=== PATIENT | male | born 1945 | race Caucasian/White ===

== ENCOUNTER 2018-12-24 11:41 | Inpatient (IN) | payer MEDICARE, OTHER ==
[2018-12-23 11:55] LABS: BASOPHILS # (AUTO) 0.1 X10'3 (0-0.2); BASOPHILS % (AUTO) 0.7 % (0-1); EOSINOPHILS # (AUTO) 0.3 X10'3 (0-0.9); EOSINOPHILS % (AUTO) 2.8 % (0-6); HEMATOCRIT 49.2 % (42.0-52.0); LYMPHOCYTES # (AUTO) 2.1 X10'3 (1.1-4.8); LYMPHOCYTES % (AUTO) 22.9 % (21-51); MEAN CORPUSCULAR HGB CONC 32.6 g/dL (33.0-36.5); MEAN CORPUSCULAR VOLUME 89.1 FL (78-98); MONOCYTES # (AUTO) 0.6 X10'3 (0-0.9); MONOCYTES % (AUTO) 6.6 % (2-12); NEUTROPHILS # (AUTO) 6.2 X10'3 (1.8-7.7); PLATELET COUNT 170 X10'3 (140-440); RED BLOOD COUNT 5.52 X10'6 (4.70-6.10); RED CELL DISTRIBUTION WIDTH 15.9 % (11.5-14.5); WHITE BLOOD COUNT 9.2 X10'3 (4.5-11.0)
[2018-12-23 12:14] LABS: ALANINE AMINOTRANSFERASE 21 U/L (12-78); ALBUMIN 3.3 G/DL (3.4-5.0); ALBUMIN/GLOBULIN RATIO 0.8 (1.1-1.5); ALKALINE PHOSPHATASE 84 IU/L (46-116); ANION GAP 7 (8-16); ASPARTATE AMINO TRANSFERASE 21 U/L (10-37); BILIRUBIN,TOTAL 0.8 MG/DL (0.1-1.0); BLOOD UREA NITROGEN 8 MG/DL (7-18); BUN/CREATININE RATIO 7.9 (5.4-32.0); CALCIUM 8.7 MG/DL (8.5-10.1); CHLORIDE 105 MMOL/L (99-107); CREATININE 1.01 MG/DL (0.60-1.10); GLUCOSE 83 MG/DL (70-104); POTASSIUM 3.8 MMOL/L (3.5-5.1); SODIUM 139 MMOL/L (135-145); TOTAL CARBON DIOXIDE 26.6 MMOL/L (24-32); TOTAL PROTEIN 7.2 G/DL (6.4-8.2); eGFR 72 ML/MIN
[2018-12-23 12:17] LABS: INR 1.1 INR; PARTIAL THROMBOPLASTIN TIME 29 SECONDS (22-32); PROTHROMBIN TIME 10.7 SECONDS (9.0-12.0)
[~2018-12-24] VITALS: Ht 172.7 cm; Wt 82.4 kg
[2018-12-24] VITALS (19 sets, daily range): BP systolic 145–183; BP diastolic 56–101
[2018-12-24] MEDS ORDERED: normal saline 1000ml 1,000 ML IV SCH (12:00)
[2018-12-24] MEDS ORDERED: nitroGLYCERIN 0.4mg SUBLingual tab SL PRN ×2 (12:05→18:00)
[2018-12-24] MEDS ORDERED: diphenhydrAMINE 25mg capsule PO ONE (12:05)
[2018-12-24] MEDS ORDERED: LORazepam 0.5 MG tablet PO ONE (12:05)
[2018-12-24] MEDS ORDERED: ASPI-1264 PO (12:39)
[2018-12-24] MEDS ORDERED: TEST200V10 IM (12:39)
[2018-12-24] MEDS ORDERED: ATOR80TA PO (12:39)
[2018-12-24] MEDS ORDERED: LEVO112T5 PO (12:39)
[2018-12-24] MEDS ORDERED: papaverine 30 mg/ml 2ml inj. ONE (13:00)
[2018-12-24] MEDS ORDERED: potassium Cl 2 mEq/ml inj IV ONE (13:00)
[2018-12-24] MEDS ORDERED: phenylephrine 10mg/ml inj. ONE (13:00)
[2018-12-24] MEDS ORDERED: albumin (human) 25% 100 ML IV solution IV ONE (13:00)
[2018-12-24] MEDS ORDERED: MAGNESIUM SULFATE 4 MEQ/ML (5gm/10ml) injection ONE (13:00)
[2018-12-24] MEDS ORDERED: LIDOcaine 2% (20 mg/ml) 5ml cardiac syringe ONE (13:00)
[2018-12-24] MEDS ORDERED: heparin 10,000 units/1 ML INJ ONE (13:00)
[2018-12-24] MEDS ORDERED: sodium bicarbonate (8.4%) inj. 1 MEQ/ML ML ONE (13:00)
[2018-12-24] MEDS ORDERED: aminocaproic acid 250 MG/1 ML inj. ONE (13:00)
[2018-12-24] MEDS ORDERED: calcium chloride 100 MG/1 ML inj IV ONE (13:00)
[2018-12-24] MEDS ORDERED: methylPREDNISolone sod. succ. 500mg inj ONE (13:00)
[2018-12-24] MEDS ORDERED: heparin 1,000 units/ml 10ml inj ONE (13:00)
[2018-12-24] MEDS ORDERED: LIDOcaine 1% (10mg/ml)w/preservative injection 20ml MDV ONE (13:08)
[2018-12-24] MEDS ORDERED: fentaNYL/PF 50MCG/1 ML 2ML syringe ONE (13:08)
[2018-12-24] MEDS ORDERED: midazolam 2 mg/2 ml injection ONE (13:08)
[2018-12-24] MEDS ORDERED: heparin 1,000 UNITS/NS 500ml 500 ML ONE ×2 (13:08)
[2018-12-24] MEDS ORDERED: iohexol 350MG/ML 100ml bottle IV ONE (13:09)
[2018-12-24] MEDS ORDERED: iohexol 350 MG/ML 50ML vial IV ONE (13:09)
[2018-12-24] MEDS ORDERED: insulin regular, human 100 UNIT in normal saline 100ml IV soln 100 ML IV SCH ×2 (15:27)
[2018-12-24] MEDS ORDERED: cefazolin/dext.iso 2gm/50ml 50 ML IV ONE (15:30)
[2018-12-24] MEDS ORDERED: vancomycin/NS 1 GM ADD-VANTAGE 250 ML IV ONE (15:30)
[2018-12-24] MEDS ORDERED: gabapentin 400mg capsule PO ONE (15:30)
[2018-12-24] MEDS ORDERED: insulin glargine (Lantus) pen - multi-dose SQ PRN (15:30)
[2018-12-24] MEDS ORDERED: MESSAGE TO NURSING PO ONE ×4 (15:30)
[2018-12-24] MEDS ORDERED: dextrose 50%-water 50ml dispensing syringe IV PRN (15:30)
[2018-12-24] MEDS ORDERED: NUT.TX.IMPAIRED DIGEST FXN (Ensure Clear) 237 ML PO ONE (15:30)
[2018-12-24] MEDS ORDERED: proCHLORperazine 10 MG/2 ml inj IV PRN (18:00)
[2018-12-24] MEDS ORDERED: ondansetron/PF 4mg/2ml inj IV PRN (18:00)
[2018-12-24] MEDS ORDERED: OXAZEpam 15mg capsule PO PRN (18:00)
[2018-12-24] MEDS: insulin Lispro (HumaLOG) vial - multi-dose SQ SCH (18:00)
[2018-12-24] MEDS ORDERED: HYDROcodone/acetaminophen 5mg/325mg tablet PO PRN (18:00)
[2018-12-24] MEDS ORDERED: normal saline 1000ml 1,000 ML IV ONE (18:00)
[2018-12-24] MEDS ORDERED: HYDROcodone/acetaminophen 10/325mg tab PO PRN (18:00)
--- NOTE | 2018-12-24 18:10 | NUR ---
Patient in room MED 310. I have received report from Art and had the opportunity to ask questions and assume patient care.
[2018-12-24 19:11] LABS: HEMATOCRIT 45.5 % (42.0-52.0); HEMOGLOBIN 14.5 g/dl (14.0-17.9); MEAN CORPUSCULAR HEMOGLOBIN 28.8 PG (27.0-31.0); MEAN CORPUSCULAR VOLUME 90.1 FL (78-98); MEAN PLATELET VOLUME 9.1 FL (7.4-10.4); PLATELET COUNT 145 X10'3 (140-440); RED BLOOD COUNT 5.05 X10'6 (4.70-6.10); RED CELL DISTRIBUTION WIDTH 15.4 % (11.5-14.5); WHITE BLOOD COUNT 6.7 X10'3 (4.5-11.0)
[2018-12-24 19:21] LABS: INR 1.1 INR; PARTIAL THROMBOPLASTIN TIME 28 SECONDS (22-32)
[2018-12-24 19:26] LABS: ALANINE AMINOTRANSFERASE 23 U/L (12-78); ALBUMIN 2.7 G/DL (3.4-5.0); ALBUMIN/GLOBULIN RATIO 0.8 (1.1-1.5); ALKALINE PHOSPHATASE 76 IU/L (46-116); ANION GAP 3 (8-16); ASPARTATE AMINO TRANSFERASE 19 U/L (10-37); BILIRUBIN,TOTAL 0.5 MG/DL (0.1-1.0); BLOOD UREA NITROGEN 8 MG/DL (7-18); BUN/CREATININE RATIO 8.1 (5.4-32.0); CALCIUM 8.2 MG/DL (8.5-10.1); CHLORIDE 107 MMOL/L (99-107); CREATININE 0.99 MG/DL (0.60-1.10); GLUCOSE 108 MG/DL (70-104); POTASSIUM 3.7 MMOL/L (3.5-5.1); SODIUM 141 MMOL/L (135-145); TOTAL CARBON DIOXIDE 31.3 MMOL/L (24-32); TOTAL PROTEIN 6.1 G/DL (6.4-8.2); eGFR 74 ML/MIN
[2018-12-24 19:32] LABS: HEMOGLOBIN A1C 6.1 % (4.5-6.2)
[2018-12-24] MEDS ORDERED: mupirocin 2% nasal ointment 1gm UD NS SCH (20:00)
[2018-12-24] MEDS: atorvastatin 20mg tablet PO SCH (20:13)
[2018-12-24] MEDS ORDERED: non-formulary drug (Atorvastatin Calcium* (Lipitor*) 1 TABLET) PO SCH (21:00)
[2018-12-24] MEDS ORDERED: amLODIPine 5mg tablet PO ONE (22:25)
[2018-12-25] VITALS (7 sets, daily range): BP systolic 98–150; BP diastolic 36–74
--- NOTE | 2018-12-25 06:10 | NUR ---
Problems reprioritized. Patient report given, questions answered & plan of care reviewed with Tiffany.
[2018-12-25] MEDS: aspirin 325mg tablet PO SCH (08:32)
[2018-12-25] MEDS: levoTHYROXINE 112mcg tablet PO SCH (08:32)
[2018-12-25] MEDS: metoprolol tartrate 12.5mg (1/2 tablet) PO SCH ×2 (08:34→20:09)
[2018-12-25] MEDS: insulin Lispro (HumaLOG) vial - multi-dose SQ SCH ×3 (09:00→13:42)
[2018-12-25] MEDS ORDERED: MESSAGE TO NURSING PO ONE (10:00)
[2018-12-25] MEDS ORDERED: FLO0.4C PO (11:55)
--- NOTE | 2018-12-25 12:31 | NUR ---
RESPIRATORY PAGED FOR PFTs AND ABGs
--- NOTE | 2018-12-25 15:11 | NUR ---
RESPIRATORY RE-PAGED. INFORMED PATIENT IS NOW 1ST CASE CABG TOMORROW NOT 2ND CASE
--- NOTE | 2018-12-25 15:19 | NUR ---
RESPIRATORY CALLED BACK INFORMED RT, MICHELET, WILL DO PRE-OP STUDIES AFTER HIS MEETING. MESSAGED PHARMACY AND INFORMED PATIENT SURGERY TIME CHANGED AND TO MAKE PRE-OP MEDS AVAILABLE/DELIVERED THIS EVENING.
[2018-12-25] MEDS ORDERED: albuterol 2.5 MG/3 ML nebule NEB ONE (16:10)
[2018-12-25 17:11] LABS: ABG BASE EXCESS 1.1 mmol/L (-2.0-3.0); ABG HCO3 24.4 mmol/L (22.0-26.0); ABG OXYGEN SATURATION 95.8 % (95-98); ABG PH (T) 7.461 (7.350-7.450); ABG PO2 (T) 76.6 mmHg (83-108); ALLEN'S TEST Positive; FCOHb 0.7 % (0.5-1.5); FMetHb 0.1 % (0.3-1.12); TOTAL HEMOGLOBIN 16.3 G/dl (14.0-18.0)
--- NOTE | 2018-12-25 18:00 | NUR ---
Patient in room MED 310. I have received report from GINNA Allen and had the opportunity to ask questions and assume patient care.
[2018-12-25] MEDS: atorvastatin 20mg tablet PO SCH (20:10)
--- NOTE | 2018-12-25 23:18 | NUR ---
AT 2304 patient noted to be moving via tele monitoring. While walking to patient room heard patient make loud sound. Entered room at found patient on the floor next to bed close to the door and a used urinal upright on the counter across the room at the sink. Patient stated he "used the urinal and was walking back to bed when he slipped and fell". Assessed patient for injury- small 1.5cm laceration to base of skull noted with little to no bleeding. no changes in vitals or neuro assessment noted. Patient denied pain and changes in vision. Assisted patient to standing and back into bed. Education provided, again, regarding need to call for assistance prior to standing. Tabs alarm placed on patient at this time for patients safety. Call placed to MD Silva- states no further intervention necessary at this time. Call placed to patients Amy Oleary- she states "sometimes he does that. he just doesn't aim and then urinates all over the floor. It drives me crazy". I explained that her did sustain a laceration to the back of head and that we would continue to monitor him for changes in condition and would notify both the MD and her if they arose. Updated patients care plan. Wound pictures taken and placed in chart.
[2018-12-26] VITALS (30 sets, daily range): BP systolic 100–157; BP diastolic 47–70
[2018-12-26] MEDS ORDERED: mupirocin 2% nasal ointment 1gm UD NS SCH ×2 (03:25→08:00)
[2018-12-26 04:26] LABS: BASOPHILS # (AUTO) 0.1 X10'3 (0-0.2); BASOPHILS % (AUTO) 0.6 % (0-1); EOSINOPHILS # (AUTO) 0.2 X10'3 (0-0.9); EOSINOPHILS % (AUTO) 2.7 % (0-6); HEMATOCRIT 50.2 % (42.0-52.0); LYMPHOCYTES # (AUTO) 1.5 X10'3 (1.1-4.8); LYMPHOCYTES % (AUTO) 16.3 % (21-51); MEAN CORPUSCULAR HEMOGLOBIN 28.7 PG (27.0-31.0); MEAN CORPUSCULAR HGB CONC 31.9 g/dL (33.0-36.5); MEAN CORPUSCULAR VOLUME 89.9 FL (78-98); MEAN PLATELET VOLUME 9.6 FL (7.4-10.4); MONOCYTES # (AUTO) 0.5 X10'3 (0-0.9); MONOCYTES % (AUTO) 5.1 % (2-12); NEUTROPHILS # (AUTO) 6.7 X10'3 (1.8-7.7); NEUTROPHILS % (AUTO) 75.3 % (42-75); PLATELET COUNT 161 X10'3 (140-440); RED BLOOD COUNT 5.59 X10'6 (4.70-6.10); RED CELL DISTRIBUTION WIDTH 15.4 % (11.5-14.5); WHITE BLOOD COUNT 8.9 X10'3 (4.5-11.0)
[2018-12-26 04:40] LABS: INR 1.1 INR; PROTHROMBIN TIME 10.7 SECONDS (9.0-12.0)
[2018-12-26 04:42] LABS: ALBUMIN 3.2 G/DL (3.4-5.0); ANION GAP 6 (8-16); BLOOD UREA NITROGEN 16 MG/DL (7-18); BUN/CREATININE RATIO 17.2 (5.4-32.0); CHLORIDE 102 MMOL/L (99-107); CREATININE 0.93 MG/DL (0.60-1.10); GLUCOSE 122 MG/DL (70-104); POTASSIUM 4.2 MMOL/L (3.5-5.1); SODIUM 135 MMOL/L (135-145); eGFR 79 ML/MIN
--- NOTE | 2018-12-26 04:59 | NUR ---
Respiratory- PATIENT IN ROOM 310, EVA SÁNCHEZ IS ON LIST FOR BREATHING TMT PRIOR TO CABG SCHEDULED FIRST CASE. JUST A REMINDER. THANK YOU- SHERLYN BOOKER RN
[2018-12-26] MEDS ORDERED: ROPIVAcaine 0.5% (5mg/ml) 30ml vial ONE (05:14)
[2018-12-26] MEDS ORDERED: acetaminophen 1,000mg/100ml IV 100 ML IV ONE (05:14)
[2018-12-26] MEDS ORDERED: NUT.TX.IMPAIRED DIGEST FXN (Ensure Clear) 237 ML PO ONE (05:30)
[2018-12-26] MEDS ORDERED: albuterol 2.5 MG/3 ML nebule NEB ONE (05:30)
[2018-12-26] MEDS ORDERED: ceFAZolin inj. 2,000 MG in dextrose 5%-water 100 ML IV ONE (05:30)
[2018-12-26] MEDS ORDERED: vancomycin/NS 1 GM ADD-VANTAGE 250 ML IV ONE (05:30)
[2018-12-26] MEDS ORDERED: insulin regular, human 100 UNIT in normal saline 100ml IV soln 100 ML IV SCH ×2 (05:30)
[2018-12-26] MEDS ORDERED: gabapentin 400mg capsule PO ONE (05:30)
[2018-12-26] MEDS ORDERED: cefazolin/dext.iso 2gm/50ml 50 ML IV ONE (05:30)
[2018-12-26] MEDS ORDERED: LORazepam 2 mg/ml vial IV ONE (06:00)
[2018-12-26] MEDS ORDERED: famotidine 20mg tablet PO ONE (06:00)
--- NOTE | 2018-12-26 06:15 | NUR ---
Problems reprioritized. Patient report given, questions answered & plan of care reviewed with GINNA Mohan.
--- NOTE | 2018-12-26 06:30 | NUR ---
PATIENT TEARFUL THIS AM. OR TEAM UPDATED. 7970 DR. SILVA AT BEDSIDE. MD ASKED PATIENT IF HE WANTS SURGERY. PATIENT STATED "LET'S DO THIS". PATIENT PREPPED AND PACKED TO GO TO [facility].
--- NOTE | 2018-12-26 06:55 | NUR ---
PATIENT OFF TO [facility]
[2018-12-26] MEDS ORDERED: sevoflurane 250ml liquid IH ONE (06:57)
[2018-12-26] MEDS ORDERED: aminocaproic acid 250 MG/1 ML inj. ONE (06:57)
[2018-12-26] MEDS ORDERED: protamine sulf. 10mg/ml inj. IV ONE (06:57)
[2018-12-26] MEDS ORDERED: DOPamine/D5W 400mg/250ml bag IV ONE (06:57)
[2018-12-26] MEDS ORDERED: midazolam 2 mg/2 ml injection ONE (06:59)
[2018-12-26] MEDS ORDERED: SUFENTANIL CITRATE 50 MCG/ML 2ml ampule IV ONE (06:59)
[2018-12-26] MEDS ORDERED: propofol inj 20 ML IV ONE (06:59)
[2018-12-26] MEDS ORDERED: rocuronium 10mg/ml inj IV ONE ×3 (07:01→08:22)
[2018-12-26 07:56] LABS: ABG BASE EXCESS -0.6 mmol/L (-2.0-3.0); ABG PCO2 39.7 mmHg (35.0-45.0); ABG PO2 500.7 mmHg (60.0-100.0); CL (ABG) 102 mmol/L (99-107); GLUCOSE (ABG) 115 mg/dl (70-105); IONIZED CA (ABG) 1.12 mmol/L (1.03-1.32); K (ABG) 3.7 mmol/L (3.3-5.1); NA (ABG) 135 mmol/L (135-145); TOTAL HEMOGLOBIN 14.7 G/dl (14.0-18.0)
[2018-12-26] MEDS: metoprolol tartrate 12.5mg (1/2 tablet) PO SCH (08:00)
[2018-12-26] MEDS: aspirin 325mg tablet PO SCH (08:00)
[2018-12-26] MEDS: levoTHYROXINE 112mcg tablet PO SCH (08:00)
[2018-12-26] MEDS ORDERED: heparin 10,000 units/1 ML INJ IR ONE (08:17)
[2018-12-26] MEDS ORDERED: papaverine 30 mg/ml 2ml inj. IA ONE (08:18)
[2018-12-26] MEDS: insulin Lispro (HumaLOG) vial - multi-dose SQ SCH ×3 (08:46→18:00)
[2018-12-26 10:20] LABS: ABG BASE EXCESS -0.1 mmol/L (-2.0-3.0); ABG HCO3 23.5 mmol/L (22.0-26.0); ABG OXYGEN SATURATION 99.4 % (95-98); ABG PCO2 34.8 mmHg (35.0-45.0); ABG PH 7.448 (7.350-7.450); ABG PO2 357.4 mmHg (60.0-100.0); CL (ABG) 103 mmol/L (99-107); FCOHb 0.3 % (0.5-1.5); FMetHb 0.4 % (0.3-1.12); FO2Hb 98.7 % (94-100); GLUCOSE (ABG) 111 mg/dl (70-105); IONIZED CA (ABG) 0.96 mmol/L (1.03-1.32); K (ABG) 5.6 mmol/L (3.3-5.1); NA (ABG) 130 mmol/L (135-145); TOTAL HEMOGLOBIN 10.6 G/dl (14.0-18.0)
[2018-12-26 10:30] LABS: ABG BASE EXCESS VENOUS -1.2 mmol/L; ABG HCO3 VENOUS 22.6 mmol/L; ABG PCO2 VENOUS 34.5 mmHg; ABG PO2 VENOUS 51.5 mmHg; CL (ABG) 102 mmol/L (99-107); FCOHb VENOUS 0.7 %; FHHb VENOUS 13.3 %; FMetHb VENOUS 0.2 %; FO2Hb VENOUS 85.8 %; GLUCOSE (ABG) 114 mg/dl (70-105); IONIZED CA (ABG) 0.96 mmol/L (1.03-1.32); K (ABG) 5.6 mmol/L (3.3-5.1); NA (ABG) 131 mmol/L (135-145); TOTAL HEMOGLOBIN 10.3 G/dl (14.0-18.0)
[2018-12-26 10:45] LABS: ABG BASE EXCESS 1.1 mmol/L (-2.0-3.0); ABG HCO3 23.8 mmol/L (22.0-26.0); ABG OXYGEN SATURATION 99.3 % (95-98); ABG PCO2 30.7 mmHg (35.0-45.0); ABG PH 7.508 (7.350-7.450); ABG PO2 330.9 mmHg (60.0-100.0); CL (ABG) 100 mmol/L (99-107); FCOHb 0.7 % (0.5-1.5); FMetHb 0.6 % (0.3-1.12); GLUCOSE (ABG) 115 mg/dl (70-105); IONIZED CA (ABG) 1.28 mmol/L (1.03-1.32); K (ABG) 5.5 mmol/L (3.3-5.1); NA (ABG) 128 mmol/L (135-145); TOTAL HEMOGLOBIN 8.8 G/dl (14.0-18.0)
--- NOTE | 2018-12-26 10:45 | NUR ---
, CHANELLE, SHOWED UP TO ACCE UNIT. I INFORMED CHANELLE THAT PATIENT WAS PICKED UP AT 0700. I ASKED THE "DID VERNON NOT TELL YOU ABOUT THE SURGERY TIME CHANGE WHEN SHE CALLED ABOUT THE PATIENT'S FALL LAST NIGHT?" STATED "I KNOW ABOUT THE FALL, BUT THE NURSE DIDN'T SAY ANYTHING ABOUT THE EARLIER SURGERY TIME" I APOLOGIZED TO THE AND I PERSONALLY WALKED HER DOWN TO THE 2ND FLOOR WAITING ROOM. I WENT TO OR NURSE STATION, FOUND JÚNIOR RN - [facility] RN THAT PICKED UP THE PATIENT THIS AM, I INFORMED HER THAT THE HAS ARRIVED AND IS IN THE WAITING ROOM. JÚNIOR SAID SHE WOULD GO UPDATE HER.
[2018-12-26 11:11] LABS: ABG BASE EXCESS VENOUS 1.6 mmol/L; ABG HCO3 VENOUS 26.7 mmol/L; ABG PCO2 VENOUS 44.4 mmHg; CL (ABG) 102 mmol/L (99-107); FCOHb VENOUS 0.7 %; FHHb VENOUS 19.1 %; FMetHb VENOUS 0.4 %; FO2Hb VENOUS 79.8 %; GLUCOSE (ABG) 125 mg/dl (70-105); IONIZED CA (ABG) 1.17 mmol/L (1.03-1.32); K (ABG) 5.2 mmol/L (3.3-5.1); NA (ABG) 132 mmol/L (135-145); TOTAL HEMOGLOBIN 10.4 G/dl (14.0-18.0)
[2018-12-26] MEDS ORDERED: niCARDipine-NS 40mg/200ml IVPB 200 ML IV PRN (12:06)
[2018-12-26] MEDS ORDERED: nitroGLYCERIN-Tridil 50MG/D5W 250 ML IV PRN (12:06)
[2018-12-26] MEDS ORDERED: DOPamine 400mg/D5W 250ml 250 ML IV PRN (12:06)
[2018-12-26] MEDS ORDERED: sodium phosphate inj. 30 MMOL in dextrose 5%-water 250 ML IV PRN (12:10)
[2018-12-26] MEDS ORDERED: magnesium 4gm in 100ml NS 100 ML IV PRN (12:10)
[2018-12-26] MEDS ORDERED: magnesium 2GM in 50ml NS 50 ML IV PRN (12:10)
[2018-12-26] MEDS ORDERED: Neutra Phos packet PO PRN (12:10)
[2018-12-26] MEDS ORDERED: magnesium hydroxide 30ml (MOM) UD suspension PO PRN (12:10)
[2018-12-26] MEDS: insulin regular, human inj. 100 UNITS in normal saline 100ml IV soln 100 ML IV SCH ×2 (12:10)
[2018-12-26] MEDS ORDERED: ondansetron/PF 4mg/2ml inj IV PRN (12:10)
[2018-12-26] MEDS ORDERED: dextrose 50%-water 50ml dispensing syringe IV PRN (12:10)
[2018-12-26] MEDS ORDERED: potassium Cl 20 mEq SR tablet PO PRN (12:10)
[2018-12-26] MEDS ORDERED: normal saline 250ml IV soln 250 ML IV PRN (12:10)
[2018-12-26] MEDS ORDERED: morphine 4 MG/ML inj SYRINge IV PRN (12:10)
[2018-12-26] MEDS ORDERED: metoclopramide 5 mg/ml inj IV PRN (12:10)
[2018-12-26] MEDS ORDERED: pantoprazole 40 MG vial IV ONE (12:10)
[2018-12-26] MEDS ORDERED: albumin (Human) 5% 250ml 250 ML IV ONE (12:15)
[2018-12-26] MEDS: sodium chloride 0.45% 1,000 ML IV SCH (12:18)
[2018-12-26] MEDS: albumin (Human) 5% 250ml 250 ML IV PRN ×2 (12:19→16:06)
[2018-12-26] MEDS: phenylephrine inj 10 MG in normal saline 250ml IV soln 249 ML IV SCH ×4 (12:25→22:25)
--- NOTE | 2018-12-26 12:30 | NUR ---
Received to room 2008, accompanied by Dr Silva and surgical crew. Placed on ventilator, to ekg monitor tech, arterial line and PA line pressure monitored. Chest tubes to suction at 20 cm. Delacruz cath to gravity drainage. Dressings are dry and intact. See assessment record. All vasoactive drugs are infusing via central line.
[2018-12-26 12:32] LABS: BASOPHILS % (AUTO) 0.3 % (0-1); EOSINOPHILS # (AUTO) 0.1 X10'3 (0-0.9); EOSINOPHILS % (AUTO) 0.5 % (0-6); HEMATOCRIT 40.5 % (42.0-52.0); HEMOGLOBIN 12.7 g/dl (14.0-17.9); LYMPHOCYTES # (AUTO) 1.1 X10'3 (1.1-4.8); LYMPHOCYTES % (AUTO) 7.2 % (21-51); MEAN CORPUSCULAR HEMOGLOBIN 28.2 PG (27.0-31.0); MEAN CORPUSCULAR HGB CONC 31.4 g/dL (33.0-36.5); MEAN CORPUSCULAR VOLUME 89.8 FL (78-98); MEAN PLATELET VOLUME 9.1 FL (7.4-10.4); MONOCYTES # (AUTO) 0.5 X10'3 (0-0.9); MONOCYTES % (AUTO) 3.2 % (2-12); NEUTROPHILS # (AUTO) 13.6 X10'3 (1.8-7.7); NEUTROPHILS % (AUTO) 88.8 % (42-75); PLATELET COUNT 126 X10'3 (140-440); RED BLOOD COUNT 4.52 X10'6 (4.70-6.10); RED CELL DISTRIBUTION WIDTH 15.6 % (11.5-14.5); WHITE BLOOD COUNT 15.3 X10'3 (4.5-11.0)
[2018-12-26 12:40] LABS: ALANINE AMINOTRANSFERASE 12 U/L (12-78); ALBUMIN 3.2 G/DL (3.4-5.0); ALBUMIN/GLOBULIN RATIO 1.6 (1.1-1.5); ALKALINE PHOSPHATASE 47 IU/L (46-116); ANION GAP 7 (8-16); ASPARTATE AMINO TRANSFERASE 28 U/L (10-37); BILIRUBIN,TOTAL 1.2 MG/DL (0.1-1.0); BLOOD UREA NITROGEN 13 MG/DL (7-18); CALCIUM 9.8 MG/DL (8.5-10.1); CHLORIDE 107 MMOL/L (99-107); CREATININE 0.93 MG/DL (0.60-1.10); GLUCOSE 151 MG/DL (70-104); MAGNESIUM 3.5 MG/DL (1.5-2.4); PHOSPHORUS 1.5 MG/DL (2.3-4.5); SODIUM 139 MMOL/L (135-145); TOTAL CARBON DIOXIDE 25.1 MMOL/L (24-32); TOTAL PROTEIN 5.2 G/DL (6.4-8.2); eGFR 79 ML/MIN
[2018-12-26 12:41] LABS: POTASSIUM 4.5 MMOL/L (3.5-5.1)
[2018-12-26 13:06] LABS: ABG BASE EXCESS -3.1 mmol/L (-2.0-3.0); ABG HCO3 21.7 mmol/L (22.0-26.0); ABG OXYGEN SATURATION 98.7 % (95-98); ABG PCO2 (T) 35.9 mmHg (35.0-48.0); ABG PH (T) 7.393 (7.350-7.450); ABG PO2 (T) 150.1 mmHg (83-108); FCOHb 0.2 % (0.5-1.5); FMetHb 0.2 % (0.3-1.12); FO2Hb 98.3 % (94-100); MINUTE VOLUME 7 L/min; PATIENT TEMPERATURE 35.6; PEEP 5 cm H2O; RESPIRATORY RATE 12 b/min; RESPIRATORY RATE (OBSERVED) 12 b/min; TIDAL VOLUME 550 mL; TOTAL HEMOGLOBIN 13.1 G/dl (14.0-18.0)
[2018-12-26 13:13] LABS: PROTHROMBIN TIME 12.1 SECONDS (9.0-12.0)
[2018-12-26 13:14] LABS: INR 1.2 INR; PARTIAL THROMBOPLASTIN TIME 34 SECONDS (22-32)
[2018-12-26] MEDS: gabapentin 300mg capsule PO SCH ×2 (13:17→20:28)
--- NOTE | 2018-12-26 13:20 | NUR ---
Updated Dr. Silva on chest tube output >150ml/hr. Order received to transfused 20U cryo.
[2018-12-26] MEDS: sodium phosphate inj. 15 MMOL in dextrose 5%-water 150 ML IV PRN (13:32)
--- NOTE | 2018-12-26 14:21 | NUR ---
CABG consult, patient s/p sternotomy redo and CABG x2, will need post cardiac diet education when able prior to discharge. Addendum: 12/26/18 at [address] Amended: Links added.
[2018-12-26] MEDS: morphine 4 MG/ML inj SYRINge IV PRN ×3 (15:01→21:16)
[2018-12-26 15:50] LABS: HEMATOCRIT 31.4 % (42.0-52.0); HEMOGLOBIN 10.1 g/dl (14.0-17.9); MEAN CORPUSCULAR HEMOGLOBIN 28.8 PG (27.0-31.0); MEAN CORPUSCULAR HGB CONC 32.2 g/dL (33.0-36.5); MEAN CORPUSCULAR VOLUME 89.4 FL (78-98); MEAN PLATELET VOLUME 9.2 FL (7.4-10.4); PLATELET COUNT 98 X10'3 (140-440); RED BLOOD COUNT 3.51 X10'6 (4.70-6.10); RED CELL DISTRIBUTION WIDTH 15.2 % (11.5-14.5); WHITE BLOOD COUNT 14.8 X10'3 (4.5-11.0)
[2018-12-26] MEDS: ceFAZolin 1GM/D5W- ADD-VANTAGE 50 ML IV SCH (16:08)
--- NOTE | 2018-12-26 17:15 | NUR ---
Updated DR. medellin on lab results and continuous high CT output. 1pk PLT order received.
[2018-12-26 18:13] LABS: BASOPHILS % (AUTO) 0 % (0-1)
[2018-12-26 18:15] LABS: EOSINOPHILS % (AUTO) 0 % (0-6); HEMOGLOBIN 8.3 g/dl (14.0-17.9); LYMPHOCYTES # (AUTO) 0.4 X10'3 (1.1-4.8); LYMPHOCYTES % (AUTO) 3.1 % (21-51); MEAN CORPUSCULAR HEMOGLOBIN 29.3 PG (27.0-31.0); MEAN CORPUSCULAR HGB CONC 33.1 g/dL (33.0-36.5); MEAN CORPUSCULAR VOLUME 88.6 FL (78-98); MEAN PLATELET VOLUME 7.9 FL (7.4-10.4); MONOCYTES # (AUTO) 0.2 X10'3 (0-0.9); NEUTROPHILS # (AUTO) 11.5 X10'3 (1.8-7.7); NEUTROPHILS % (AUTO) 94.9 % (42-75); PLATELET COUNT 131 X10'3 (140-440); RED BLOOD COUNT 2.82 X10'6 (4.70-6.10); RED CELL DISTRIBUTION WIDTH 15.3 % (11.5-14.5); WHITE BLOOD COUNT 12.1 X10'3 (4.5-11.0)
--- NOTE | 2018-12-26 18:27 | NUR ---
Problems reprioritized. Patient report given, questions answered & plan of care reviewed with GINNA Amaya.
--- NOTE | 2018-12-26 18:30 | NUR ---
Patient in room CICU 2008. I have received report from Tish CHACKO and had the opportunity to ask questions and assume patient care.
[2018-12-26 18:35] LABS: ALBUMIN 3.2 G/DL (3.4-5.0); ANION GAP 5 (8-16); BLOOD UREA NITROGEN 13 MG/DL (7-18); CALCIUM 8.5 MG/DL (8.5-10.1); CHLORIDE 109 MMOL/L (99-107); CREATININE 1.08 MG/DL (0.60-1.10); GLUCOSE 164 MG/DL (70-104); MAGNESIUM 2.4 MG/DL (1.5-2.4); SODIUM 141 MMOL/L (135-145); TOTAL CARBON DIOXIDE 26.6 MMOL/L (24-32); eGFR 67 ML/MIN
[2018-12-26] MEDS: potassium Cl 20mEq/100mL bag 100 ML IV PRN (18:54)
--- NOTE | 2018-12-26 19:00 | NUR ---
Spoke to Dr Silva. New orders received to transfuse PRBC and FFP. Will monitor Closely.
[2018-12-26] MEDS: docusate sod 100mg capsule PO SCH (20:00)
[2018-12-26] MEDS: vancomycin/NS 1 GM ADD-VANTAGE 250 ML IV SCH (20:29)
[2018-12-26] MEDS: mupirocin 2% nasal ointment 1gm UD NS SCH (20:29)
[2018-12-26 20:37] LABS: HEMATOCRIT 27.9 % (42.0-52.0); HEMOGLOBIN 9.1 g/dl (14.0-17.9); MEAN CORPUSCULAR HEMOGLOBIN 28.4 PG (27.0-31.0); MEAN CORPUSCULAR HGB CONC 32.5 g/dL (33.0-36.5); MEAN CORPUSCULAR VOLUME 87.4 FL (78-98); MEAN PLATELET VOLUME 8.4 FL (7.4-10.4); PLATELET COUNT 115 X10'3 (140-440); RED CELL DISTRIBUTION WIDTH 16.7 % (11.5-14.5); WHITE BLOOD COUNT 8.6 X10'3 (4.5-11.0)
[2018-12-26 20:56] LABS: PARTIAL THROMBOPLASTIN TIME 28 SECONDS (22-32); PROTHROMBIN TIME 10.6 SECONDS (9.0-12.0)
--- NOTE | 2018-12-26 21:14 | NUR ---
Patient awakens and moving all extremities, attempting to sit up in bed and coughing but not following any commands at this time. Medicated for pain at this time.
--- NOTE | 2018-12-26 22:00 | NUR ---
Updated Dr Silva on patients status. No new orders at this time. Will continue to monitor closely.
[2018-12-27] VITALS (27 sets, daily range): BP systolic 91–161; BP diastolic 50–111
--- NOTE | 2018-12-27 | NUR ---
Patient awake ans following commands. Patient moving all extremities. Will continue to monitor.
[2018-12-27] MEDS: ceFAZolin 1GM/D5W- ADD-VANTAGE 50 ML IV SCH ×4 (00:14→23:54)
[2018-12-27] MEDS: morphine 4 MG/ML inj SYRINge IV PRN ×5 (00:14→18:56)
[2018-12-27] MEDS: phenylephrine inj 10 MG in normal saline 250ml IV soln 249 ML IV SCH ×7 (01:45→21:45)
--- NOTE | 2018-12-27 01:47 | NUR ---
Dr Silva at bedside and updated on patient. No new orders at this time. Will continue to monitor closely.
[2018-12-27 02:09] LABS: BASOPHILS % (AUTO) 0 % (0-1); EOSINOPHILS % (AUTO) 0 % (0-6); HEMATOCRIT 26.2 % (42.0-52.0); HEMOGLOBIN 8.4 g/dl (14.0-17.9); LYMPHOCYTES # (AUTO) 0.5 X10'3 (1.1-4.8); LYMPHOCYTES % (AUTO) 3.6 % (21-51); MEAN CORPUSCULAR HEMOGLOBIN 28.3 PG (27.0-31.0); MEAN CORPUSCULAR HGB CONC 32.2 g/dL (33.0-36.5); MEAN CORPUSCULAR VOLUME 87.7 FL (78-98); MONOCYTES # (AUTO) 0.3 X10'3 (0-0.9); NEUTROPHILS # (AUTO) 12.2 X10'3 (1.8-7.7); NEUTROPHILS % (AUTO) 94.4 % (42-75); PLATELET COUNT 123 X10'3 (140-440); RED BLOOD COUNT 2.98 X10'6 (4.70-6.10); RED CELL DISTRIBUTION WIDTH 16.4 % (11.5-14.5)
[2018-12-27 02:13] LABS: PROTHROMBIN TIME 10.2 SECONDS (9.0-12.0)
[2018-12-27 02:14] LABS: PARTIAL THROMBOPLASTIN TIME 27 SECONDS (22-32)
[2018-12-27 02:17] LABS: ALANINE AMINOTRANSFERASE 19 U/L (12-78); ALBUMIN 3.2 G/DL (3.4-5.0); ALBUMIN/GLOBULIN RATIO 1.5 (1.1-1.5); ALKALINE PHOSPHATASE 44 IU/L (46-116); ANION GAP 7 (8-16); ASPARTATE AMINO TRANSFERASE 30 U/L (10-37); BILIRUBIN,TOTAL 1.4 MG/DL (0.1-1.0); BLOOD UREA NITROGEN 13 MG/DL (7-18); BUN/CREATININE RATIO 12.9 (5.4-32.0); CALCIUM 8.3 MG/DL (8.5-10.1); CHLORIDE 109 MMOL/L (99-107); CREATININE 1.01 MG/DL (0.60-1.10); GLUCOSE 141 MG/DL (70-104); MAGNESIUM 2.5 MG/DL (1.5-2.4); PHOSPHORUS 2.8 MG/DL (2.3-4.5); POTASSIUM 4.6 MMOL/L (3.5-5.1); SODIUM 141 MMOL/L (135-145); TOTAL CARBON DIOXIDE 25.3 MMOL/L (24-32); TOTAL PROTEIN 5.4 G/DL (6.4-8.2); eGFR 72 ML/MIN
[2018-12-27 02:40] LABS: ABG HCO3 23.3 mmol/L (22.0-26.0); ABG OXYGEN SATURATION 95.4 % (95-98); ABG PCO2 (T) 37.3 mmHg (35.0-48.0); ABG PH (T) 7.415 (7.350-7.450); ABG PO2 (T) 80.9 mmHg (83-108); ALLEN'S TEST Positive; FCOHb 0.3 % (0.5-1.5); FMetHb 0.2 % (0.3-1.12); FO2Hb 94.9 % (94-100); MINUTE VOLUME 9 L/min; PATIENT TEMPERATURE 37.1; PEEP 5 cm H2O; RESPIRATORY RATE (OBSERVED) 10 b/min; TOTAL HEMOGLOBIN 9.5 G/dl (14.0-18.0)
--- NOTE | 2018-12-27 04:37 | NUR ---
Dr Silva and [place] by to see patient. New orders received.
--- NOTE | 2018-12-27 06:39 | NUR ---
Problems reprioritized. Patient report given, questions answered & plan of care reviewed with Rosina CHACKO.
[2018-12-27] MEDS: levoTHYROXINE 112mcg tablet PO SCH (07:45)
[2018-12-27] MEDS: metoprolol tartrate 12.5mg (1/2 tablet) PO SCH ×2 (07:45→20:39)
[2018-12-27] MEDS: tamsulosin 0.4mg capsule PO SCH (07:45)
[2018-12-27] MEDS: docusate sod 100mg capsule PO SCH ×2 (07:46→20:00)
[2018-12-27] MEDS: aspirin 325mg tablet, delayed-release (Ecotrin) PO SCH (07:46)
[2018-12-27] MEDS: atorvastatin 10mg tablet PO SCH (07:46)
[2018-12-27] MEDS: gabapentin 300mg capsule PO SCH ×3 (07:46→20:40)
[2018-12-27] MEDS: mupirocin 2% nasal ointment 1gm UD NS SCH ×2 (08:30→20:40)
[2018-12-27] MEDS: insulin Lispro (HumaLOG) vial - multi-dose SQ SCH ×3 (09:00→18:00)
[2018-12-27] MEDS: vancomycin/NS 1 GM ADD-VANTAGE 250 ML IV SCH ×2 (09:02→20:39)
[2018-12-27 09:44] LABS: BASOPHILS % (AUTO) 0.1 % (0-1); EOSINOPHILS % (AUTO) 0 % (0-6); HEMATOCRIT 24.7 % (42.0-52.0); HEMOGLOBIN 7.8 g/dl (14.0-17.9); LYMPHOCYTES # (AUTO) 0.4 X10'3 (1.1-4.8); LYMPHOCYTES % (AUTO) 2.6 % (21-51); MEAN CORPUSCULAR HEMOGLOBIN 27.9 PG (27.0-31.0); MEAN CORPUSCULAR HGB CONC 31.5 g/dL (33.0-36.5); MEAN CORPUSCULAR VOLUME 88.4 FL (78-98); MEAN PLATELET VOLUME 8.8 FL (7.4-10.4); MONOCYTES # (AUTO) 0.6 X10'3 (0-0.9); MONOCYTES % (AUTO) 3.6 % (2-12); NEUTROPHILS # (AUTO) 14.8 X10'3 (1.8-7.7); NEUTROPHILS % (AUTO) 93.7 % (42-75); PLATELET COUNT 176 X10'3 (140-440); RED BLOOD COUNT 2.79 X10'6 (4.70-6.10); RED CELL DISTRIBUTION WIDTH 16.8 % (11.5-14.5); WHITE BLOOD COUNT 15.8 X10'3 (4.5-11.0)
[2018-12-27 09:45] LABS: ALBUMIN 3.4 G/DL (3.4-5.0); ANION GAP 9 (8-16); BLOOD UREA NITROGEN 16 MG/DL (7-18); BUN/CREATININE RATIO 15.2 (5.4-32.0); CHLORIDE 108 MMOL/L (99-107); CREATININE 1.05 MG/DL (0.60-1.10); GLUCOSE 162 MG/DL (70-104); POTASSIUM 4.9 MMOL/L (3.5-5.1); SODIUM 142 MMOL/L (135-145); TOTAL CARBON DIOXIDE 25.3 MMOL/L (24-32); eGFR 69 ML/MIN
[2018-12-27 09:57] LABS: PROTHROMBIN TIME 10.4 SECONDS (9.0-12.0)
[2018-12-27 11:30] LABS: MAGNESIUM 2.3 MG/DL (1.5-2.4); PHOSPHORUS 3.7 MG/DL (2.3-4.5)
[2018-12-27] MEDS: HYDROcodone/acetaminophen 10/325mg tab PO PRN (11:30)
[2018-12-27] MEDS: insulin regular, human inj. 100 UNITS in normal saline 100ml IV soln 100 ML IV SCH ×2 (12:10)
--- NOTE | 2018-12-27 14:57 | NUR ---
Spoke with Dr Silva and discussed entire patient status with updates regarding drips, chest tube output, lines, labs, pain medicine, and recent chest x-ray. I explained we had trouble with a very dampened waveform this morning, charge nurse RN pulled PA back a little to 47 from 50 and waveform improved for a short while, now currently dampened, no dichrotic notch but in main PA per recent x-ray at 1200. He did not give me orders to remove PA line or make any changes right now. I told him patient was not able to get out of bed this morning, but is sitting bolt right up all day to help drain chest tubes. I told him I would order another Hemogram at 1700 he states he would look at it 1730 from home. I also talked about urine output being about 30/hr but 100/hr for two hours this morning with ABX, but I realize he's received a lot of fluid, he states continue to watch.
--- NOTE | 2018-12-27 15:45 | NUR ---
Dr Silva at bedside, assessing PA line/x-ray/waveforms and patient status. We discussed the fluid he had received and talked about starting some lasix which he said he would order. He is pleased that chest tube output has slowed down.
[2018-12-27] MEDS ORDERED: furosemide 40mg/4ml inj IV ONE (16:05)
[2018-12-27 16:46] LABS: HEMATOCRIT 27.9 % (42.0-52.0); HEMOGLOBIN 8.8 g/dl (14.0-17.9); MEAN CORPUSCULAR HEMOGLOBIN 28.3 PG (27.0-31.0); MEAN CORPUSCULAR HGB CONC 31.5 g/dL (33.0-36.5); MEAN PLATELET VOLUME 8.9 FL (7.4-10.4); PLATELET COUNT 163 X10'3 (140-440); RED BLOOD COUNT 3.09 X10'6 (4.70-6.10); RED CELL DISTRIBUTION WIDTH 15.9 % (11.5-14.5); WHITE BLOOD COUNT 14.8 X10'3 (4.5-11.0)
--- NOTE | 2018-12-27 17:00 | NUR ---
Labs reviewed with dr Silva at bedside - no new orders at this time.
--- NOTE | 2018-12-27 18:30 | NUR ---
Patient in room CICU 2008. I have received report from Rosina CHACKO and had the opportunity to ask questions and assume patient care.
--- NOTE | 2018-12-27 18:30 | NUR ---
Problems reprioritized. Patient report given, questions answered & plan of care reviewed with GINNA Amaya.
--- NOTE | 2018-12-27 19:00 | NUR ---
Patient agitated and restless. Attempted to pull chest tubes, trying to get out of bed.
[2018-12-28] VITALS (22 sets, daily range): BP systolic 94–138; BP diastolic 40–69
[2018-12-28] MEDS: phenylephrine inj 10 MG in normal saline 250ml IV soln 249 ML IV SCH ×2 (01:05→04:25)
[2018-12-28] MEDS: HYDROcodone/acetaminophen 10/325mg tab PO PRN ×3 (05:23→17:48)
--- NOTE | 2018-12-28 06:53 | NUR ---
Problems reprioritized. Patient report given, questions answered & plan of care reviewed with Tabatha CHACKO.
[2018-12-28] MEDS: mupirocin 2% nasal ointment 1gm UD NS SCH (08:00)
[2018-12-28] MEDS: insulin Lispro (HumaLOG) vial - multi-dose SQ SCH (09:00)
[2018-12-28] MEDS: aspirin 325mg tablet, delayed-release (Ecotrin) PO SCH (09:17)
[2018-12-28] MEDS: atorvastatin 10mg tablet PO SCH (09:17)
[2018-12-28] MEDS: tamsulosin 0.4mg capsule PO SCH (09:17)
[2018-12-28] MEDS: gabapentin 300mg capsule PO SCH (09:18)
[2018-12-28] MEDS: docusate sod 100mg capsule PO SCH ×3 (09:19→21:23)
[2018-12-28] MEDS: metoprolol tartrate 12.5mg (1/2 tablet) PO SCH ×3 (09:19→21:22)
[2018-12-28] MEDS: pantoprazole 40mg Tablet.DR PO SCH (09:19)
[2018-12-28] MEDS: levoTHYROXINE 112mcg tablet PO SCH (09:19)
[2018-12-28] MEDS ORDERED: mupirocin 2% nasal ointment 1gm UD NS ONE (09:35)
[2018-12-28] MEDS: sodium chloride 0.45% 1,000 ML IV SCH ×2 (12:06→21:23)
[2018-12-28] MEDS: insulin regular, human inj. 100 UNITS in normal saline 100ml IV soln 100 ML IV SCH ×2 (12:10)
--- NOTE | 2018-12-28 12:19 | NUR ---
0800- Pt to CT with nurse and prosthetics technician, tolerated well, back to room by 0830 [place] Jacobs here, notified of elevated PA pressures, [place] adjusted lines, remains elevated, CI ok, ok to DC PA line. 1000 PA line DC'd no ectopy noticed, tolerated well, new dressing to CVL at right neck
[2018-12-28] MEDS ORDERED: albuterol 2.5 MG/3 ML nebule NEB PRN (13:25)
[2018-12-28 16:37] LABS: BASOPHILS % (AUTO) 0.1 % (0-1); EOSINOPHILS % (AUTO) 0 % (0-6); HEMATOCRIT 25.9 % (42.0-52.0); HEMOGLOBIN 8.4 g/dl (14.0-17.9); LYMPHOCYTES # (AUTO) 0.8 X10'3 (1.1-4.8); LYMPHOCYTES % (AUTO) 5.5 % (21-51); MEAN CORPUSCULAR HEMOGLOBIN 29.1 PG (27.0-31.0); MEAN CORPUSCULAR HGB CONC 32.3 g/dL (33.0-36.5); MEAN CORPUSCULAR VOLUME 90.1 FL (78-98); MEAN PLATELET VOLUME 9.2 FL (7.4-10.4); MONOCYTES # (AUTO) 0.8 X10'3 (0-0.9); MONOCYTES % (AUTO) 5.5 % (2-12); NEUTROPHILS # (AUTO) 12.8 X10'3 (1.8-7.7); NEUTROPHILS % (AUTO) 88.9 % (42-75); PLATELET COUNT 128 X10'3 (140-440); RED BLOOD COUNT 2.88 X10'6 (4.70-6.10); RED CELL DISTRIBUTION WIDTH 16.3 % (11.5-14.5); WHITE BLOOD COUNT 14.3 X10'3 (4.5-11.0)
--- NOTE | 2018-12-28 18:49 | NUR ---
[facility]-maintained care of patient. Sitting up in bed, eating. Had an episode upon waking where he was disoriented and was talking about needing the "baby", had a nightmare and was distraught, reoriented after approx 30 minutes. calm now.
--- NOTE | 2018-12-28 23:46 | NUR ---
Pt refused colace and metoprolol ordered for 1999. Attempted to hold until patient awoke but pt uncooperative upon first waking.
--- NOTE | 2018-12-28 23:59 | NUR ---
pt woke and agreed to take metoprolol
[2018-12-29] VITALS (24 sets, daily range): BP systolic 100–152; BP diastolic 34–81
--- NOTE | 2018-12-29 00:12 | NUR ---
Assumed care of patient after receiving report from Tabatha RN. Patient is awake and resting comfortably. On 2L oxygen via nasal cannula, has NS running at TKO into central line.
--- NOTE | 2018-12-29 00:25 | NUR ---
Problems reprioritized. Patient report given, questions answered & plan of care reviewed with Sissy.
[2018-12-29 03:23] LABS: BASOPHILS % (AUTO) 0 % (0-1); EOSINOPHILS % (AUTO) 0.2 % (0-6); HEMATOCRIT 24.8 % (42.0-52.0); LYMPHOCYTES # (AUTO) 1.5 X10'3 (1.1-4.8); LYMPHOCYTES % (AUTO) 12.7 % (21-51); MEAN CORPUSCULAR HGB CONC 32.4 g/dL (33.0-36.5); MEAN CORPUSCULAR VOLUME 89.6 FL (78-98); MEAN PLATELET VOLUME 8.9 FL (7.4-10.4); MONOCYTES # (AUTO) 0.7 X10'3 (0-0.9); MONOCYTES % (AUTO) 5.8 % (2-12); NEUTROPHILS # (AUTO) 9.4 X10'3 (1.8-7.7); NEUTROPHILS % (AUTO) 81.3 % (42-75); PLATELET COUNT 115 X10'3 (140-440); RED BLOOD COUNT 2.77 X10'6 (4.70-6.10); RED CELL DISTRIBUTION WIDTH 16.4 % (11.5-14.5); WHITE BLOOD COUNT 11.6 X10'3 (4.5-11.0)
[2018-12-29] MEDS: HYDROcodone/acetaminophen 10/325mg tab PO PRN ×5 (03:29→20:39)
[2018-12-29 03:50] LABS: ALBUMIN 3.1 G/DL (3.4-5.0); ANION GAP 4 (8-16); BLOOD UREA NITROGEN 25 MG/DL (7-18); BUN/CREATININE RATIO 28.1 (5.4-32.0); CALCIUM 8.1 MG/DL (8.5-10.1); CHLORIDE 104 MMOL/L (99-107); CREATININE 0.89 MG/DL (0.60-1.10); GLUCOSE 124 MG/DL (70-104); MAGNESIUM 2.3 MG/DL (1.5-2.4); PHOSPHORUS 2.1 MG/DL (2.3-4.5); POTASSIUM 4.3 MMOL/L (3.5-5.1); SODIUM 138 MMOL/L (135-145); TOTAL CARBON DIOXIDE 30.4 MMOL/L (24-32); eGFR 83 ML/MIN
[2018-12-29 05:11] LABS: ACT @ 1.70 U 326 SEC (193-297); ACT @ 2.84 U 491 SEC (260-420); BASELINE ACT 145 SEC (101-148); PATIENT WEIGHT 84.0k KG
[2018-12-29 05:11] LABS: ACTIVATED CLOTTING TIME 130 SEC (101-148)
--- NOTE | 2018-12-29 06:23 | NUR ---
Problems reprioritized. Patient report given, questions answered & plan of care reviewed with GINNA Jcaome.
--- NOTE | 2018-12-29 06:26 | NUR ---
Report given to Rosina RN, patient resting comfortably at this time.
--- NOTE | 2018-12-29 07:07 | NUR ---
Dr Silva and PA at bedside talking to patient. Plan for getting up to chair and walking more today, monitor chest tubes, keep in today. Total output NOC was 50cc.
[2018-12-29] MEDS ORDERED: furosemide 40mg/4ml inj IV ONE (07:10)
--- NOTE | 2018-12-29 07:45 | NUR ---
Pt up to chair for breakfast, two person assist. Has difficulty following instructions or understanding them first time around, expressive aphasia also means there is difficulty with communication.
[2018-12-29] MEDS: pantoprazole 40mg Tablet.DR PO SCH (08:10)
[2018-12-29] MEDS: aspirin 81mg tablet.DR PO SCH (08:10)
[2018-12-29] MEDS: tamsulosin 0.4mg capsule PO SCH (08:10)
[2018-12-29] MEDS: docusate sod 100mg capsule PO SCH ×2 (08:10→20:38)
[2018-12-29] MEDS: metoprolol tartrate 12.5mg (1/2 tablet) PO SCH ×2 (08:10→20:38)
[2018-12-29] MEDS: levoTHYROXINE 112mcg tablet PO SCH (08:10)
[2018-12-29] MEDS: atorvastatin 10mg tablet PO SCH (08:11)
--- NOTE | 2018-12-29 10:15 | NUR ---
Pt back to bed [address] Silva at bedside received update that he put out 70cc to chest tube when he stood up.
--- NOTE | 2018-12-29 13:00 | NUR ---
At 1230 pt woke from a nap and seemed confused and disoriented, unable to speak except say "hey" repeatedly. Charge nurse called to bedside, PT assisted with standing patient and sitting in a chair. After a few minutes patient able to finally respond yes or no, very fidgety in bed seems uncomfortable, norco 10 provided after he states yes to having pain.
--- NOTE | 2018-12-29 13:45 | NUR ---
Pt sat in chair for about 30 minutes appears very uncomfortable moving a lot, groaning and belching a lot. Pt assisted back to bed with PT, very weak, only able to stand for a few seconds, not able to march in place or walk. at bedside but patient confused enough to require bedside sitter. Sitter not available, nurse sitting at bedside to remind patient of sternal precautions and make sure he's not climbing out of bed or compromising chest tubes.
--- NOTE | 2018-12-29 14:11 | NUR ---
Patient eating fairly well s/p CABG. Eating 50-74% of no concentrated sweets diet. LBM 4, patient receiving colace BID. Patient s/p sternotomy redo and CABG x2 POD #3, will need post cardiac diet education when able prior to discharge. Recommend: 1. continue no concentrated sweets diet, monitor need for ONS 2. continue bowel care 3. provide written post cardiac diet education handout prior to discharge 4. Wt per rx Addendum: 12/29/18 at [address] Amended: Links added.
--- NOTE | 2018-12-29 18:25 | NUR ---
Patient in room CICU 2008. I have received report from Rosina CHACKO and had the opportunity to ask questions and assume patient care.
--- NOTE | 2018-12-29 18:28 | NUR ---
Problems reprioritized. Patient report given, questions answered & plan of care reviewed with GINNA Campoverde.
[2018-12-29 20:36] LABS: MAGNESIUM 2.4 MG/DL (1.5-2.4); PHOSPHORUS 2.2 MG/DL (2.3-4.5); POTASSIUM 3.6 MMOL/L (3.5-5.1)
--- NOTE | 2018-12-29 20:50 | NUR ---
Pt confused, but will answer questions appropriately on occasion. Not following sternal precautions, restless, requiring frequent reminders. Sitter at bedside. Calls out: "Oh my God!" and groans, but unable to describe pain. [place] given for pain level of 7-10 per non verbal pain scale. Will continue to monitor.
--- NOTE | 2018-12-29 21:58 | NUR ---
Pt agitation appears to have decreased. Appears calm. Sitter at bedside.
[2018-12-30] VITALS (23 sets, daily range): BP systolic 100–156; BP diastolic 36–71
[2018-12-30] MEDS: HYDROcodone/acetaminophen 10/325mg tab PO PRN ×2 (01:07→04:11)
[2018-12-30 02:43] LABS: BASOPHILS % (AUTO) 0.2 % (0-1); EOSINOPHILS # (AUTO) 0.2 X10'3 (0-0.9); EOSINOPHILS % (AUTO) 1.8 % (0-6); HEMATOCRIT 24.7 % (42.0-52.0); HEMOGLOBIN 8.1 g/dl (14.0-17.9); LYMPHOCYTES # (AUTO) 1.3 X10'3 (1.1-4.8); LYMPHOCYTES % (AUTO) 13.4 % (21-51); MEAN CORPUSCULAR HEMOGLOBIN 29.6 PG (27.0-31.0); MEAN CORPUSCULAR HGB CONC 32.9 g/dL (33.0-36.5); MEAN CORPUSCULAR VOLUME 90.1 FL (78-98); MEAN PLATELET VOLUME 9.1 FL (7.4-10.4); MONOCYTES # (AUTO) 0.6 X10'3 (0-0.9); MONOCYTES % (AUTO) 6.1 % (2-12); NEUTROPHILS # (AUTO) 7.8 X10'3 (1.8-7.7); NEUTROPHILS % (AUTO) 78.5 % (42-75); PLATELET COUNT 139 X10'3 (140-440); RED BLOOD COUNT 2.74 X10'6 (4.70-6.10); RED CELL DISTRIBUTION WIDTH 15.9 % (11.5-14.5)
--- NOTE | 2018-12-30 02:44 | NUR ---
Pt agitated, calls out. Pulls at bed rails and at gown. Attempts to reorient unsuccessful. Sitter at bedside. Lights turned down, curtain pulled. Refusing medication for pain despite appearing to be in pain,non verbally displayed as grimacing and groaning.
[2018-12-30 02:55] LABS: ALBUMIN 2.8 G/DL (3.4-5.0); ANION GAP 4 (8-16); BLOOD UREA NITROGEN 22 MG/DL (7-18); BUN/CREATININE RATIO 25.3 (5.4-32.0); CHLORIDE 103 MMOL/L (99-107); CREATININE 0.87 MG/DL (0.60-1.10); GLUCOSE 116 MG/DL (70-104); MAGNESIUM 2.2 MG/DL (1.5-2.4); PHOSPHORUS 2.4 MG/DL (2.3-4.5); POTASSIUM 3.7 MMOL/L (3.5-5.1); SODIUM 138 MMOL/L (135-145); TOTAL CARBON DIOXIDE 30.8 MMOL/L (24-32); eGFR 86 ML/MIN
[2018-12-30] MEDS: potassium Cl 20mEq/100mL bag 100 ML IV PRN ×3 (03:34→08:11)
[2018-12-30] MEDS: sodium phosphate inj. 15 MMOL in dextrose 5%-water 150 ML IV PRN (04:19)
--- NOTE | 2018-12-30 04:31 | NUR ---
Pt agitated, calls out,grimaces and groans. Pulls at bed rails and at gown. Attempts to turn by pulling at bedrail. Not using sternal precautions despite frequent reminders. Sitter at bedside. [place] given for pain level of 7/10 per non verbal scale and patient request.
--- NOTE | 2018-12-30 06:34 | NUR ---
Problems reprioritized. Patient report given, questions answered & plan of care reviewed with Batsheva CHACKO.
[2018-12-30] MEDS ORDERED: ziprasidone IM 20mg inj **IM only IM ONE (07:05)
[2018-12-30] MEDS: pantoprazole 40mg Tablet.DR PO SCH (07:30)
--- NOTE | 2018-12-30 07:35 | NUR ---
Patient extremely agitated this morning. Did not sleep last night. Patient is yelling, calling out, not able to follow sternal precautions, he is pulling at lines, blankets, pillows, gown, continually trying to climb out of bed, restless, anxious and began to become slightly aggressive toward staff. Called out to Dr. Silva and orders received. Sitter at bedside. Will continue to monitor.
[2018-12-30] MEDS: levoTHYROXINE 112mcg tablet PO SCH (08:00)
[2018-12-30] MEDS: atorvastatin 10mg tablet PO SCH (08:00)
[2018-12-30] MEDS: aspirin 81mg tablet.DR PO SCH (08:00)
[2018-12-30] MEDS: metoprolol tartrate 12.5mg (1/2 tablet) PO SCH ×2 (08:00→21:12)
[2018-12-30] MEDS: tamsulosin 0.4mg capsule PO SCH (08:00)
[2018-12-30] MEDS: docusate sod 100mg capsule PO SCH ×2 (08:00→21:13)
[2018-12-30] MEDS ORDERED: magnesium 2GM in 50ml NS 50 ML IV PRN (08:02)
--- NOTE | 2018-12-30 10:00 | NUR ---
Patient a lot more calm with Jeanette on board, sleeping at this time, wakes up about every 20 min for few seconds and goes back to sleep.
[2018-12-30] MEDS: sodium chloride 0.45% 1,000 ML IV SCH (12:06)
--- NOTE | 2018-12-30 18:09 | NUR ---
Patient continues to be calm. Sat in a chair for 2 hours, ate lunch, following commands. Pleasant but still confused.
--- NOTE | 2018-12-30 18:19 | NUR ---
Problems reprioritized. Patient report given, questions answered & plan of care reviewed with Debora CHACKO.
--- NOTE | 2018-12-30 18:20 | NUR ---
Patient in room CICU 2008. I have received report from Batsheva CHACKO and had the opportunity to ask questions and assume patient care. Patient resting in bed, drowsy but easily arousable. Patient is confused, but pleasant. Sitter at bedside assisting with dinner. Pulse rate at 101 in sinus rhythm, patient saturating 96% on 2L NC and breathing at 19 breaths/min. Will continue to monitor patient.
[2018-12-31] VITALS (23 sets, daily range): BP systolic 91–165; BP diastolic 42–83
[2018-12-31] MEDS: acetaminophen 325mg tablet PO PRN ×2 (02:49→07:02)
--- NOTE | 2018-12-31 02:49 | NUR ---
Patient becoming extremely restless in bed, attempting to put legs over rails. PO tylenol given crushed in yogurt. Patient now exhausted, calming down. Will continue to monitor patient anxiety.
[2018-12-31 03:05] LABS: INR 1.1 INR; PROTHROMBIN TIME 10.8 SECONDS (9.0-12.0)
[2018-12-31 03:07] LABS: BASOPHILS % (AUTO) 0.2 % (0-1); EOSINOPHILS # (AUTO) 0.4 X10'3 (0-0.9); EOSINOPHILS % (AUTO) 4.4 % (0-6); HEMATOCRIT 26.9 % (42.0-52.0); HEMOGLOBIN 8.9 g/dl (14.0-17.9); LYMPHOCYTES # (AUTO) 1.3 X10'3 (1.1-4.8); LYMPHOCYTES % (AUTO) 13.1 % (21-51); MEAN CORPUSCULAR HGB CONC 33.2 g/dL (33.0-36.5); MEAN CORPUSCULAR VOLUME 90.3 FL (78-98); MEAN PLATELET VOLUME 9.1 FL (7.4-10.4); MONOCYTES # (AUTO) 0.9 X10'3 (0-0.9); MONOCYTES % (AUTO) 8.6 % (2-12); NEUTROPHILS # (AUTO) 7.6 X10'3 (1.8-7.7); NEUTROPHILS % (AUTO) 73.7 % (42-75); PLATELET COUNT 182 X10'3 (140-440); RED BLOOD COUNT 2.98 X10'6 (4.70-6.10); RED CELL DISTRIBUTION WIDTH 16.6 % (11.5-14.5); WHITE BLOOD COUNT 10.3 X10'3 (4.5-11.0)
[2018-12-31 03:14] LABS: ALBUMIN 2.8 G/DL (3.4-5.0); ANION GAP 6 (8-16); BLOOD UREA NITROGEN 15 MG/DL (7-18); BUN/CREATININE RATIO 18.1 (5.4-32.0); CALCIUM 8.6 MG/DL (8.5-10.1); CHLORIDE 102 MMOL/L (99-107); CREATININE 0.83 MG/DL (0.60-1.10); GLUCOSE 108 MG/DL (70-104); MAGNESIUM 2.1 MG/DL (1.5-2.4); PHOSPHORUS 2.4 MG/DL (2.3-4.5); POTASSIUM 4.4 MMOL/L (3.5-5.1); SODIUM 136 MMOL/L (135-145); TOTAL CARBON DIOXIDE 28.1 MMOL/L (24-32); eGFR 90 ML/MIN
[2018-12-31] MEDS: potassium Cl 20mEq/100mL bag 100 ML IV PRN ×2 (03:46→05:11)
--- NOTE | 2018-12-31 04:00 | NUR ---
Patient continues to rest, wakes up periodically groaning, but able to go back to sleep easily. Sitter still at bedside. K being replaced per MD orders. Will continue to monitor.
--- NOTE | 2018-12-31 06:29 | NUR ---
Problems reprioritized. Patient report given, questions answered & plan of care reviewed with Tabatha CHACKO.
[2018-12-31] MEDS: levoTHYROXINE 112mcg tablet PO SCH (07:01)
[2018-12-31] MEDS: pantoprazole 40mg Tablet.DR PO SCH (07:01)
[2018-12-31] MEDS: metoprolol tartrate 12.5mg (1/2 tablet) PO SCH ×2 (07:01→20:18)
[2018-12-31] MEDS: aspirin 81mg tablet.DR PO SCH (07:01)
[2018-12-31] MEDS: atorvastatin 10mg tablet PO SCH (07:03)
[2018-12-31] MEDS: tamsulosin 0.4mg capsule PO SCH (07:03)
[2018-12-31] MEDS: docusate sod 100mg capsule PO SCH ×2 (07:03→20:18)
[2018-12-31] MEDS: sodium chloride 0.45% 1,000 ML IV SCH (07:05)
--- NOTE | 2018-12-31 07:30 | NUR ---
0600 Patient in room CICU 2008. I have received report from Debora and had the opportunity to ask questions and assume patient care. 0645 Pt awake and confused, does not know place, event, time. Expressive dysphasia worse than from assessment on Saturday, also appears to be having some receptive aphasia, when I ask him to sip from straw he looks confused, needed a lot of coaxing to take meds, difficulty following even simple commands. Pacer tested, not sensing or capturing appropriately. Patient c/o of pain, appears to be sternal, unable to elaborate.
[2018-12-31] MEDS ORDERED: acetaminophen 325mg tablet PO PRN (09:10)
--- NOTE | 2018-12-31 11:21 | NUR ---
0930- Spoke with VIDYA Danielson, regarding patients inability to articulate words, expressive dysphasia worse from Saturday assessment. No noticeable facial droop, tongue midline when patient sticks out. Patient mostly unable to follow even simple commands, swallow is good with signs of aspiration. 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 Continue to monitor.
--- NOTE | 2018-12-31 14:37 | NUR ---
Pt was able to ambulate with PT, sat in chair for a couple hours, able to answer "yes" ready to go to bed, a little more clear and less agitated. Spoke with Maira Marrero in regards to dysphasia and any recommendations from a neuro standpoint. Recommends a cognitive and swallow eval from speech therapy. Will call Montana Coreas with recommendations.
--- NOTE | 2018-12-31 18:21 | NUR ---
Problems reprioritized. Patient report given, questions answered & plan of care reviewed with Debora.
--- NOTE | 2018-12-31 18:25 | NUR ---
Patient in room CICU 2008. I have received report from Tabatha CHACKO and had the opportunity to ask questions and assume patient care. Patient resting in bed with eyes closed, easily arousable to name. Currently calm, sitter at bedside. HR in mid 80s in sinus rhythm, oxygen saturation at 99% on room air. Will continue to monitor patient.
--- NOTE | 2018-12-31 20:40 | NUR ---
2026:Boosted patient up in bed, patient had 30 second episode of SVT with rate as high as 180s. Patient spontaneously converted back into sinus rhythm in high 90s 2037:Notified Dr. Silva regarding patient's episode of SVT. No new orders received at this time. States he is on vacation and that Dr. Irizarry is consulting software engineer tonight for his patients.
--- NOTE | 2018-12-31 22:00 | NUR ---
Patient became extremely agitated while cleaning him up after a BM, swinging and attempting to kick staff. Patient able to be calmed by leaving him alone. No orders available at this time for agitation. Will continue to monitor patient.
[2019-01-01] VITALS (17 sets, daily range): BP systolic 104–146; BP diastolic 50–75
--- NOTE | 2019-01-01 04:00 | NUR ---
Patient becomes extremely agitated when touched or when attempts are made to stop him from pulling at lines. Yells "STOP THAT!". Calms down when left alone. Sitter remains at bedside to proved frequent reorientation. Will continue to monitor patient.
[2019-01-01 06:04] LABS: BASOPHILS % (AUTO) 0.2 % (0-1); EOSINOPHILS # (AUTO) 0.5 X10'3 (0-0.9); EOSINOPHILS % (AUTO) 4.7 % (0-6); HEMATOCRIT 30.1 % (42.0-52.0); HEMOGLOBIN 10.1 g/dl (14.0-17.9); LYMPHOCYTES # (AUTO) 1.1 X10'3 (1.1-4.8); MEAN CORPUSCULAR HEMOGLOBIN 29.4 PG (27.0-31.0); MEAN CORPUSCULAR HGB CONC 33.6 g/dL (33.0-36.5); MEAN CORPUSCULAR VOLUME 87.7 FL (78-98); MEAN PLATELET VOLUME 8.4 FL (7.4-10.4); MONOCYTES # (AUTO) 0.8 X10'3 (0-0.9); MONOCYTES % (AUTO) 7.4 % (2-12); NEUTROPHILS # (AUTO) 8.5 X10'3 (1.8-7.7); NEUTROPHILS % (AUTO) 77.7 % (42-75); PLATELET COUNT 205 X10'3 (140-440); RED BLOOD COUNT 3.44 X10'6 (4.70-6.10); RED CELL DISTRIBUTION WIDTH 16.2 % (11.5-14.5); WHITE BLOOD COUNT 10.9 X10'3 (4.5-11.0)
[2019-01-01 06:22] LABS: INR 1.1 INR
--- NOTE | 2019-01-01 06:22 | NUR ---
Problems reprioritized. Patient report given, questions answered & plan of care reviewed with Gaudencio CHACKO.
[2019-01-01 06:26] LABS: ALBUMIN 2.8 G/DL (3.4-5.0); ANION GAP 8 (8-16); BLOOD UREA NITROGEN 12 MG/DL (7-18); BUN/CREATININE RATIO 14.6 (5.4-32.0); CALCIUM 8.5 MG/DL (8.5-10.1); CHLORIDE 100 MMOL/L (99-107); CREATININE 0.82 MG/DL (0.60-1.10); GLUCOSE 101 MG/DL (70-104); MAGNESIUM 1.8 MG/DL (1.5-2.4); POTASSIUM 4.1 MMOL/L (3.5-5.1); SODIUM 133 MMOL/L (135-145); TOTAL CARBON DIOXIDE 24.7 MMOL/L (24-32); eGFR > 90 ML/MIN
[2019-01-01] MEDS: docusate sod 100mg capsule PO SCH ×2 (07:36→19:50)
[2019-01-01] MEDS: tamsulosin 0.4mg capsule PO SCH (08:11)
[2019-01-01] MEDS: levoTHYROXINE 112mcg tablet PO SCH (08:13)
[2019-01-01] MEDS: metoprolol tartrate 12.5mg (1/2 tablet) PO SCH ×2 (08:13→19:49)
[2019-01-01] MEDS: atorvastatin 10mg tablet PO SCH (08:13)
[2019-01-01] MEDS: aspirin 81mg tablet.DR PO SCH (08:13)
[2019-01-01] MEDS: pantoprazole 40mg Tablet.DR PO SCH (08:13)
[2019-01-01] MEDS ORDERED: magnesium 4gm in 100ml NS 100 ML IV PRN (08:20)
[2019-01-01] MEDS ORDERED: potassium Cl 40MEQ/NS 500ml 500 ML IV PRN ×2 (08:20)
[2019-01-01] MEDS ORDERED: magnesium 2GM in 50ml NS 50 ML IV PRN (08:20)
[2019-01-01] MEDS ORDERED: magnesium Cl slow-release 64mg tablet PO PRN (08:20)
[2019-01-01] MEDS ORDERED: potassium Cl 20 mEq SR tablet PO PRN ×2 (08:20)
--- NOTE | 2019-01-01 12:19 | NUR ---
Reassessment: Pt has BSS done this morning, PITCH GATHERER reports that patient needs multiple swallows to clear his throat and recommends pureed foods and thin liquids. He refused breakfast this morning and since 12/29 patient refusing most meals. Prior was eating about 25-49%. Poor appetite currently. He is POD#6 s/p CABG. Per MD notes he is confused but able to speak in "word salad." Recommend Ensure High Protein with meals to encourage intake of energy and protein for wound heal. Not ready for post op nutrition education. Will continue to follow. Recommend: 1. continue purred, no concentrated sweets diet 2. continue bowel care 3. provide written post cardiac diet education handout prior to discharge 4. Wt per rx 5. Send Ensure High Protein with meals Addendum: 01/01/19 at [address] Amended: Links added.
--- NOTE | 2019-01-01 13:18 | NUR ---
Called to give report; the nurse will call me back
--- NOTE | 2019-01-01 13:27 | NUR ---
Delacruz removed per MD order. Patient tolerated well
--- NOTE | 2019-01-01 14:40 | NUR ---
pt arrived to floor via hospital bed with all belongings; pt transferred beds. VSS; sinus tach.
--- NOTE | 2019-01-01 17:51 | NUR ---
bladder scan performed on pt. only 100cc residual. will continue to monitor.
--- NOTE | 2019-01-01 18:05 | NUR ---
Patient in room MED 312. I have received report from Kimberlee and had the opportunity to ask questions and assume patient care.
[2019-01-01] MEDS: potassium Cl 20 mEq SR tablet PO SCH (19:50)
[2019-01-01] MEDS: magnesium Cl slow-release 64mg tablet PO SCH (19:55)
[2019-01-02 02:00] VITALS: BP 115/46
[2019-01-02 05:51] LABS: ALBUMIN 2.8 G/DL (3.4-5.0); ANION GAP 9 (8-16); BLOOD UREA NITROGEN 17 MG/DL (7-18); BUN/CREATININE RATIO 18.1 (5.4-32.0); CALCIUM 8.7 MG/DL (8.5-10.1); CHLORIDE 101 MMOL/L (99-107); CREATININE 0.94 MG/DL (0.60-1.10); GLUCOSE 102 MG/DL (70-104); POTASSIUM 4.5 MMOL/L (3.5-5.1); SODIUM 135 MMOL/L (135-145); TOTAL CARBON DIOXIDE 25.2 MMOL/L (24-32); eGFR 78 ML/MIN
[2019-01-02 06:00] VITALS: BP 140/66
[2019-01-02 06:03] LABS: INR 1.1 INR; PROTHROMBIN TIME 10.8 SECONDS (9.0-12.0)
[2019-01-02] MEDS: docusate sod 100mg capsule PO SCH ×2 (08:00→20:51)
[2019-01-02] MEDS: lactose-reduced food (Ensure High Protein) 237ml bottle PO SCH ×3 (08:00→18:00)
[2019-01-02] MEDS: K and/or MAG REPLACEMENT MC SCH (08:00)
[2019-01-02] MEDS: potassium Cl 20 mEq SR tablet PO SCH ×2 (08:12→19:44)
[2019-01-02] MEDS: tamsulosin 0.4mg capsule PO SCH (08:12)
[2019-01-02] MEDS: magnesium Cl slow-release 64mg tablet PO SCH ×2 (08:12→20:51)
[2019-01-02] MEDS: levoTHYROXINE 112mcg tablet PO SCH (08:12)
[2019-01-02] MEDS: pantoprazole 40mg Tablet.DR PO SCH (08:12)
[2019-01-02] MEDS: aspirin 81mg tablet.DR PO SCH (08:12)
[2019-01-02] MEDS: atorvastatin 10mg tablet PO SCH (08:12)
[2019-01-02] MEDS: metoprolol tartrate 12.5mg (1/2 tablet) PO SCH ×2 (08:13→20:51)
[2019-01-02 11:00] VITALS: BP 113/54
[2019-01-02 11:26] LABS: BASOPHILS # (AUTO) 0.1 X10'3 (0-0.2); BASOPHILS % (AUTO) 0.6 % (0-1); EOSINOPHILS # (AUTO) 0.7 X10'3 (0-0.9); EOSINOPHILS % (AUTO) 5.1 % (0-6); HEMATOCRIT 30.6 % (42.0-52.0); LYMPHOCYTES # (AUTO) 1.3 X10'3 (1.1-4.8); MEAN CORPUSCULAR HEMOGLOBIN 28.8 PG (27.0-31.0); MEAN CORPUSCULAR HGB CONC 32.5 g/dL (33.0-36.5); MEAN CORPUSCULAR VOLUME 88.7 FL (78-98); MEAN PLATELET VOLUME 8.5 FL (7.4-10.4); MONOCYTES # (AUTO) 1.1 X10'3 (0-0.9); MONOCYTES % (AUTO) 8.3 % (2-12); NEUTROPHILS # (AUTO) 9.8 X10'3 (1.8-7.7); PLATELET COUNT 255 X10'3 (140-440); RED BLOOD COUNT 3.45 X10'6 (4.70-6.10); RED CELL DISTRIBUTION WIDTH 16.7 % (11.5-14.5); WHITE BLOOD COUNT 12.9 X10'3 (4.5-11.0)
[2019-01-02 15:00] VITALS: BP 99/48
[2019-01-02 18:00] VITALS: BP 94/39
--- NOTE | 2019-01-02 18:00 | NUR ---
Patient in room MED 312. I have received report from GINNA Mohan and had the opportunity to ask questions and assume patient care.
[2019-01-02 22:00] VITALS: BP 111/46
[2019-01-03 02:00] VITALS: BP 125/50
[2019-01-03 05:26] LABS: INR 1.1 INR; PROTHROMBIN TIME 10.7 SECONDS (9.0-12.0)
[2019-01-03 05:27] LABS: ALBUMIN 2.6 G/DL (3.4-5.0); ANION GAP 8 (8-16); BLOOD UREA NITROGEN 22 MG/DL (7-18); BUN/CREATININE RATIO 23.7 (5.4-32.0); CALCIUM 8.6 MG/DL (8.5-10.1); CHLORIDE 102 MMOL/L (99-107); CREATININE 0.93 MG/DL (0.60-1.10); GLUCOSE 102 MG/DL (70-104); POTASSIUM 4.3 MMOL/L (3.5-5.1); SODIUM 135 MMOL/L (135-145); eGFR 79 ML/MIN
[2019-01-03 05:42] LABS: BASOPHILS # (AUTO) 0.1 X10'3 (0-0.2); BASOPHILS % (AUTO) 0.5 % (0-1); EOSINOPHILS # (AUTO) 0.8 X10'3 (0-0.9); EOSINOPHILS % (AUTO) 7.1 % (0-6); HEMATOCRIT 31.4 % (42.0-52.0); HEMOGLOBIN 10.1 g/dl (14.0-17.9); LYMPHOCYTES # (AUTO) 1.2 X10'3 (1.1-4.8); LYMPHOCYTES % (AUTO) 10.4 % (21-51); MEAN CORPUSCULAR HEMOGLOBIN 28.6 PG (27.0-31.0); MEAN CORPUSCULAR HGB CONC 32.3 g/dL (33.0-36.5); MEAN CORPUSCULAR VOLUME 88.8 FL (78-98); MEAN PLATELET VOLUME 9.3 FL (7.4-10.4); MONOCYTES # (AUTO) 0.8 X10'3 (0-0.9); MONOCYTES % (AUTO) 7.2 % (2-12); NEUTROPHILS # (AUTO) 8.4 X10'3 (1.8-7.7); NEUTROPHILS % (AUTO) 74.8 % (42-75); PLATELET COUNT 253 X10'3 (140-440); RED BLOOD COUNT 3.53 X10'6 (4.70-6.10); RED CELL DISTRIBUTION WIDTH 16.4 % (11.5-14.5); WHITE BLOOD COUNT 11.2 X10'3 (4.5-11.0)
--- NOTE | 2019-01-03 06:00 | NUR ---
Problems reprioritized. Patient report given, questions answered & plan of care reviewed with Art, RN.
[2019-01-03] MEDS: potassium Cl 20 mEq SR tablet PO SCH ×2 (07:38→20:02)
[2019-01-03] MEDS: magnesium Cl slow-release 64mg tablet PO SCH ×2 (07:38→20:02)
[2019-01-03] MEDS: levoTHYROXINE 112mcg tablet PO SCH (07:38)
[2019-01-03] MEDS: atorvastatin 10mg tablet PO SCH (07:38)
[2019-01-03] MEDS: tamsulosin 0.4mg capsule PO SCH (07:38)
[2019-01-03] MEDS: aspirin 81mg tablet.DR PO SCH (07:38)
[2019-01-03] MEDS: docusate sod 100mg capsule PO SCH ×2 (07:38→20:03)
[2019-01-03] MEDS: pantoprazole 40mg Tablet.DR PO SCH (07:39)
[2019-01-03] MEDS: metoprolol tartrate 12.5mg (1/2 tablet) PO SCH ×2 (07:39→20:02)
[2019-01-03] MEDS: lactose-reduced food (Ensure High Protein) 237ml bottle PO SCH ×3 (08:00→18:00)
[2019-01-03] MEDS: K and/or MAG REPLACEMENT MC SCH (08:00)
[2019-01-03 08:15] VITALS: BP 110/46
[2019-01-03 10:36] VITALS: BP 109/52
--- NOTE | 2019-01-03 13:24 | NUR ---
Pt seems to be talking to people who are not currently present in his room.
[2019-01-03 15:00] VITALS: BP 116/67
--- NOTE | 2019-01-03 16:52 | NUR ---
reassessment: Pt PO 25-50% avg meals w/ 0% ONS not meeting wound healing needs. RD provided written CABG ed w/ RD contact information since pt not fully able to comprehend verbal ed; AOx1. LBM 01/01. Will continue to monitor. Recommend: 1. continue pureed, no concentrated sweets diet 2. continue bowel care 3. Wt per rx 4. Send Ensure High Protein with meals Addendum: 01/03/19 at [address] Amended: Links added.
[2019-01-03 18:00] VITALS: BP 126/64
--- NOTE | 2019-01-03 18:00 | NUR ---
Patient in room MED 312. I have received report from Art, RN and had the opportunity to ask questions and assume patient care.
[2019-01-03 22:00] VITALS: BP 125/57
[2019-01-04 02:00] VITALS: BP 135/61
[2019-01-04 06:00] VITALS: BP 128/51
--- NOTE | 2019-01-04 06:00 | NUR ---
Problems reprioritized. Patient report given, questions answered & plan of care reviewed with GINNA Allen.
--- NOTE | 2019-01-04 06:12 | NUR ---
Patient in room MED 312. I have received report from GINNA PLATA, and had the opportunity to ask questions and assume patient care.
[2019-01-04 06:37] LABS: BASOPHILS # (AUTO) 0.1 X10'3 (0-0.2); BASOPHILS % (AUTO) 0.5 % (0-1); EOSINOPHILS # (AUTO) 0.8 X10'3 (0-0.9); EOSINOPHILS % (AUTO) 5.9 % (0-6); HEMATOCRIT 32.8 % (42.0-52.0); HEMOGLOBIN 10.6 g/dl (14.0-17.9); LYMPHOCYTES % (AUTO) 7.6 % (21-51); MEAN CORPUSCULAR HEMOGLOBIN 28.8 PG (27.0-31.0); MEAN CORPUSCULAR HGB CONC 32.3 g/dL (33.0-36.5); MEAN CORPUSCULAR VOLUME 89.3 FL (78-98); MEAN PLATELET VOLUME 9.1 FL (7.4-10.4); MONOCYTES # (AUTO) 0.7 X10'3 (0-0.9); MONOCYTES % (AUTO) 5.3 % (2-12); NEUTROPHILS # (AUTO) 10.6 X10'3 (1.8-7.7); NEUTROPHILS % (AUTO) 80.7 % (42-75); PLATELET COUNT 270 X10'3 (140-440); RED BLOOD COUNT 3.68 X10'6 (4.70-6.10); RED CELL DISTRIBUTION WIDTH 16.6 % (11.5-14.5); WHITE BLOOD COUNT 13.2 X10'3 (4.5-11.0)
[2019-01-04 06:44] LABS: INR 1.1 INR; PROTHROMBIN TIME 10.7 SECONDS (9.0-12.0)
[2019-01-04 06:48] LABS: ALBUMIN 2.7 G/DL (3.4-5.0); ANION GAP 9 (8-16); BLOOD UREA NITROGEN 18 MG/DL (7-18); BUN/CREATININE RATIO 23.4 (5.4-32.0); CALCIUM 8.6 MG/DL (8.5-10.1); CHLORIDE 100 MMOL/L (99-107); CREATININE 0.77 MG/DL (0.60-1.10); GLUCOSE 103 MG/DL (70-104); POTASSIUM 4.2 MMOL/L (3.5-5.1); SODIUM 136 MMOL/L (135-145); TOTAL CARBON DIOXIDE 27.4 MMOL/L (24-32); eGFR > 90 ML/MIN
[2019-01-04] MEDS: pantoprazole 40mg Tablet.DR PO SCH (07:46)
[2019-01-04] MEDS: levoTHYROXINE 112mcg tablet PO SCH (07:46)
[2019-01-04] MEDS: atorvastatin 10mg tablet PO SCH (07:47)
[2019-01-04] MEDS: tamsulosin 0.4mg capsule PO SCH (07:47)
[2019-01-04] MEDS: aspirin 81mg tablet.DR PO SCH (07:47)
[2019-01-04] MEDS: docusate sod 100mg capsule PO SCH (07:47)
[2019-01-04] MEDS: metoprolol tartrate 12.5mg (1/2 tablet) PO SCH (07:47)
[2019-01-04] MEDS: magnesium Cl slow-release 64mg tablet PO SCH (07:47)
[2019-01-04] MEDS: potassium Cl 20 mEq SR tablet PO SCH (08:00)
[2019-01-04] MEDS: K and/or MAG REPLACEMENT MC SCH (08:00)
[2019-01-04] MEDS: lactose-reduced food (Ensure High Protein) 237ml bottle PO SCH ×2 (08:15→13:10)
[2019-01-04 11:00] VITALS: BP 127/57
--- NOTE | 2019-01-04 15:10 | NUR ---
XUAN ARRIVED TO ADMIN SECRETARY PATIENT AND TRANSFER HIM TO [facility]. IV REMOVED, CATHETER INTACT, MINIMAL BLEEDING CLEAN GAUZE APPLIED AND SECURED WITH TAPE. REPORT HAD BEEN CALLED TO TAMIKA AT [facility] AT 1400. ALL BELONGINGS SENT WITH PATIENT, WELL TRANSFER PACKET.
== END 2019-01-04 15:12 | DRG 233 ==
LOC: SSTAY O 11:41 → MED 3N 18:00 → CICU 2S 12-26 11:30 → MED 3N 01-01 14:40
PROVIDERS: ADMIT Internal Medicine Cardiovascular Disease; ATTEND Thoracic Surgery (Cardiothoracic Vascular Surgery)
PROC: 4A023N7 Measurement of Cardiac Sampling and Pressure, Left Heart, Percutaneous Approach (ICD-10-PCS; 2018-12-24)
PROC: B2111ZZ Fluoroscopy of Multiple Coronary Arteries using Low Osmolar Contrast (ICD-10-PCS; 2018-12-24)
PROC: B2151ZZ Fluoroscopy of Left Heart using Low Osmolar Contrast (ICD-10-PCS; 2018-12-24)
PROC: B2121ZZ Fluoroscopy of Single Coronary Artery Bypass Graft using Low Osmolar Contrast (ICD-10-PCS; 2018-12-24)
PROC: B5171ZZ Fluoroscopy of Left Subclavian Vein using Low Osmolar Contrast (ICD-10-PCS; 2018-12-24)
PROC: B41F1ZZ Fluoroscopy of Right Lower Extremity Arteries using Low Osmolar Contrast (ICD-10-PCS; 2018-12-24)
PROC: B3111ZZ Fluoroscopy of Right Brachiocephalic-Subclavian Artery using Low Osmolar Contrast (ICD-10-PCS; 2018-12-24)
PROC: B2181ZZ Fluoroscopy of Left Internal Mammary Bypass Graft using Low Osmolar Contrast (ICD-10-PCS; 2018-12-24)
PROC: 021009W Bypass Coronary Artery, One Artery from Aorta with Autologous Venous Tissue, Open Approach (ICD-10-PCS; 2018-12-26)
PROC: 06BP4ZZ Excision of Right Saphenous Vein, Percutaneous Endoscopic Approach (ICD-10-PCS; 2018-12-26)
PROC: 30233N1 Transfusion of Nonautologous Red Blood Cells into Peripheral Vein, Percutaneous Approach (ICD-10-PCS; 2018-12-26)
PROC: 30233R1 Transfusion of Nonautologous Platelets into Peripheral Vein, Percutaneous Approach (ICD-10-PCS; 2018-12-26)
PROC: 30233K1 Transfusion of Nonautologous Frozen Plasma into Peripheral Vein, Percutaneous Approach (ICD-10-PCS; 2018-12-26)
PROC: 30233M1 Transfusion of Nonautologous Plasma Cryoprecipitate into Peripheral Vein, Percutaneous Approach (ICD-10-PCS; 2018-12-26)
PROC: 02HP32Z Insertion of Monitoring Device into Pulmonary Trunk, Percutaneous Approach (ICD-10-PCS; 2018-12-26)
PROC: 4A133B3 Monitoring of Arterial Pressure, Pulmonary, Percutaneous Approach (ICD-10-PCS; 2018-12-26)
PROC: 4A1239Z Monitoring of Cardiac Output, Percutaneous Approach (ICD-10-PCS; 2018-12-26)
PROC: 02HV33Z Insertion of Infusion Device into Superior Vena Cava, Percutaneous Approach (ICD-10-PCS; 2018-12-26)
PROC: B24BZZ4 Ultrasonography of Heart with Aorta, Transesophageal (ICD-10-PCS; 2018-12-26)
PROC: 5A1221Z Performance of Cardiac Output, Continuous (ICD-10-PCS; 2018-12-26)
PROC: 02100Z8 Bypass Coronary Artery, One Artery from Right Internal Mammary, Open Approach (ICD-10-PCS; principal; 2018-12-26 06:57)
PROC: 30233N1 Transfusion of Nonautologous Red Blood Cells into Peripheral Vein, Percutaneous Approach (ICD-10-PCS; 2018-12-27)
PROC: 30233R1 Transfusion of Nonautologous Platelets into Peripheral Vein, Percutaneous Approach (ICD-10-PCS; 2018-12-27)
DX: I25.810 Atherosclerosis of coronary artery bypass graft(s) without angina pectoris (principal); I50.33 Acute on chronic diastolic (congestive) heart failure; G92 Toxic encephalopathy; E03.9 Hypothyroidism, unspecified; E78.5 Hyperlipidemia, unspecified; F03.90 Unspecified dementia, unspecified severity, without behavioral disturbance, psychotic disturbance, mood disturbance, and anxiety; I25.5 Ischemic cardiomyopathy; M19.90 Unspecified osteoarthritis, unspecified site; I11.0 Hypertensive heart disease with heart failure; R94.39 Abnormal result of other cardiovascular function study; J44.9 Chronic obstructive pulmonary disease, unspecified; N40.0 Benign prostatic hyperplasia without lower urinary tract symptoms; Z79.899 Other long term (current) drug therapy; Z79.82 Long term (current) use of aspirin; Z87.891 Personal history of nicotine dependence
CPT/HCPCS: 0232T; 93312; 93325; 93459; 36415; 36600; 71045; 71046; 71250; 80048; 80053; 82330; 82435; 82803; 82947; 82948; 83036; 83735; 84100; 84132; 84295; 84443; 85018; 85025; 85027; 85347; 85384; 85610; 85730; 86885; 86900; 86901; 86920; 87070; 88305; 92508; 92616; 93005; 93880; 93971; 94002; 94060; 94640; 94668; 94760; 97110; 97116; 97161; 97530; 97535; 99152; 99153; A4620; A6255; A6257; A6258; A6402; A6449; A7000; A7048; C1751; C1760; C1769; C9113; G0378; J0131; J0690; J1265; J1644; J1815; J1940; J2001; J2060; J2150; J2250; J2270; J2370; J2440; J2704; J2720; J2795; J2930; J3010; J3370; J3475; J3480; J3486; J3490; J7030; J7060; J7120; P9012; P9016; P9035; P9045; P9047; P9059; Q0163; Q9967

== ENCOUNTER 2019-01-06 19:26 | Inpatient (IN) | payer MEDICARE, OTHER ==
[~2019-01-06] VITALS: Ht 177.8 cm; Wt 82.3 kg
[~2019-01-06 19:26] MED LIST: ASPI-1264 PO; ATOR80TA PO; FLO0.4C PO; LEVO112T5 PO; TEST200V10 IM
--- NOTE | 2019-01-06 20:47 | NUR ---
DR WILL MADE AWARE OF BP 80/60 MANUAL. ORDERS ENTERED.
[2019-01-06] MEDS ORDERED: normal saline 1000ML IV soln IVB ONE (20:50)
[2019-01-06 21:31] LABS: BASOPHILS # (AUTO) 0.1 X10'3 (0-0.2); BASOPHILS % (AUTO) 0.3 % (0-1); EOSINOPHILS # (AUTO) 0.5 X10'3 (0-0.9); EOSINOPHILS % (AUTO) 2.8 % (0-6); HEMATOCRIT 31.1 % (42.0-52.0); LYMPHOCYTES % (AUTO) 5.1 % (21-51); MEAN CORPUSCULAR HEMOGLOBIN 28.2 PG (27.0-31.0); MEAN CORPUSCULAR HGB CONC 32.3 g/dL (33.0-36.5); MEAN CORPUSCULAR VOLUME 87.4 FL (78-98); MEAN PLATELET VOLUME 8.8 FL (7.4-10.4); MONOCYTES # (AUTO) 1.1 X10'3 (0-0.9); MONOCYTES % (AUTO) 5.5 % (2-12); NEUTROPHILS # (AUTO) 16.6 X10'3 (1.8-7.7); NEUTROPHILS % (AUTO) 86.3 % (42-75); PLATELET COUNT 295 X10'3 (140-440); RED BLOOD COUNT 3.55 X10'6 (4.70-6.10); RED CELL DISTRIBUTION WIDTH 16.6 % (11.5-14.5); WHITE BLOOD COUNT 19.3 X10'3 (4.5-11.0)
[2019-01-06 21:36] LABS: INR 1.1 INR; PARTIAL THROMBOPLASTIN TIME 29 SECONDS (22-32)
[2019-01-06 21:48] LABS: ALANINE AMINOTRANSFERASE 115 U/L (12-78); ALBUMIN 2.5 G/DL (3.4-5.0); ALBUMIN/GLOBULIN RATIO 0.7 (1.1-1.5); ALKALINE PHOSPHATASE 153 IU/L (46-116); ANION GAP 4 (8-16); ASPARTATE AMINO TRANSFERASE 100 U/L (10-37); BILIRUBIN,TOTAL 1.1 MG/DL (0.1-1.0); BLOOD UREA NITROGEN 24 MG/DL (7-18); BUN/CREATININE RATIO 17.6 (5.4-32.0); CALCIUM 8.2 MG/DL (8.5-10.1); CHLORIDE 102 MMOL/L (99-107); CREATININE 1.36 MG/DL (0.60-1.10); GLUCOSE 117 MG/DL (70-104); POTASSIUM 3.9 MMOL/L (3.5-5.1); SODIUM 133 MMOL/L (135-145); TOTAL CARBON DIOXIDE 27.4 MMOL/L (24-32); TOTAL PROTEIN 6.1 G/DL (6.4-8.2); eGFR 51 ML/MIN
[2019-01-06 21:53] LABS: CLARITY,URINE SLIGHTLY CLOUDY (Clear); COLOR,URINE YELLOW (Yellow); GLUCOSE, URINE NEGATIVE (Neg); KETONES,URINE TRACE mg/dl (Neg); LEUKOCYTE ESTERASE ,URINE NEGATIVE (Neg); NITRITES, URINE NEGATIVE (Neg); OCCULT BLOOD,URINE NEGATIVE (Neg); PH,URINE 5.5 (4.8-8.0); PROTEIN,URINE TRACE mg/dl (Neg)
[2019-01-06 21:55] LABS: UA COLLECTION TYPE STRAIGHT CATH
[2019-01-06 21:59] LABS: AMORPHOUS URATES 4+; MUCUS STRANDS MANY /LPF (Neg); SQUAMOUS EPITHELIAL CELL,UR FEW /LPF (FEW)
[2019-01-06 22:00] LABS: BACTERIA,URINE FEW /HPF (Neg); RBC,URINE 0-2 /HPF (0-2); WBC,URINE 0-4 /HPF (0-4)
[2019-01-06] MEDS ORDERED: CefTRIAXone 2gm/D5W 50ml 50 ML IV ONE (22:25)
[2019-01-06] MEDS ORDERED: normal saline 1000ML IV soln IV ONE (22:25)
[2019-01-06] MEDS ORDERED: levoFLOXACIN-Levaquin 750MG/D5 150 ML IV STA (22:28)
--- NOTE | 2019-01-06 23:08 | NUR ---
DR GREWAL MADE AWARE OF SBP 60'S X3. PATIENT ASYMPTOMATIC, CENTRAL LINE SET UP TO BEDSIDE.
[2019-01-06] MEDS: NORepinephrine 8mg/ 250ml NS 250 ML IV PRN (23:12)
--- NOTE | 2019-01-06 23:18 | NUR ---
LEVOPHED (SEE EMAR) STARTED AT THIS TIME TO IV TO RAC PER DR GREWAL, PATIENT AWAKE, ALERT, NO SIGNS OF DISTRESS NOTED, TOLERATING LEVOPHED WELL, WILL CONTINUE TO MONITOR.
[2019-01-07] VITALS (24 sets, daily range): BP systolic 69–111; BP diastolic 43–70
[2019-01-07] MEDS ORDERED: potassium Cl 20 mEq SR tablet PO PRN ×2 (00:15)
[2019-01-07] MEDS ORDERED: morphine 2 MG/ML inj. syringe IV PRN (00:15)
[2019-01-07] MEDS ORDERED: potassium Cl 40MEQ/250ML bag 250 ML IV PRN ×3 (00:15→02:50)
[2019-01-07] MEDS ORDERED: morphine 4 MG/ML inj SYRINge IV PRN (00:15)
[2019-01-07] MEDS ORDERED: acetaminophen 325mg tablet PO PRN ×3 (00:15→09:20)
[2019-01-07] MEDS ORDERED: HYDROcodone/acetaminophen 5mg/325mg tablet PO PRN (00:15)
[2019-01-07] MEDS ORDERED: potassium Cl 40MEQ/250ML bag 250 ML IV SCH (00:15)
[2019-01-07] MEDS ORDERED: ondansetron/PF 4mg/2ml inj IV PRN (00:15)
[2019-01-07] MEDS ORDERED: METO25TA6 PO (00:52)
[2019-01-07] MEDS ORDERED: DOCU-20 PO (00:52)
[2019-01-07] MEDS ORDERED: BISA10SU60 RC (00:52)
[2019-01-07] MEDS ORDERED: PANT-47 PO (00:52)
[2019-01-07] MEDS ORDERED: NA P133E4 RC (00:52)
[2019-01-07] MEDS ORDERED: ACET-2119 PO (00:52)
--- NOTE | 2019-01-07 01:30 | NUR ---
Patient in room CICU 2012. I have received report from Cammie CHACKO and had the opportunity to ask questions and assume patient care. Patient arrived via gurney, transferred to hospital bed with moderate assistance. Patient alert and oriented to self, pleasant but confused. BP 69/43 on 5mcg levo, increased to 7mcg. Levo infusing through L femoral central line. 2 RN skin check performed, skin intact except for CABG incision to chest and R leg. Will continue to monitor patient closely.
[2019-01-07] MEDS: K, MAG and/or Phos replacement - Verify level? MC SCH ×2 (02:18→08:00)
[2019-01-07] MEDS: normal saline 1000ml 1,000 ML IV SCH ×3 (02:47→22:41)
[2019-01-07 03:11] LABS: OXYGEN SATURATION (MIXED VEN) 58.8 % (60-80); PO2 MIXED VENOUS (TEMP COR) 31.4 mmHg (35-46)
[2019-01-07] MEDS: VANCOMYCIN IV SCH ×2 (03:17→06:34)
[2019-01-07] MEDS: SODIUM CHLORIDE IV SCH ×2 (03:17→06:34)
--- NOTE | 2019-01-07 04:02 | NUR ---
Skin assessed with Racquel Umana RN, Racquel Umana unable to co-sign on intervention due to meditech issues. Addendum: 01/07/19 at 0403 by Deobra Charlton RN Amended: Links added.
[2019-01-07] MEDS ORDERED: vancomycin/NS 1 GM ADD-VANTAGE 250 ML IV ONE (06:15)
--- NOTE | 2019-01-07 06:30 | NUR ---
Patient in room CICU 2013. I have received report from GINNA Cazares and had the opportunity to ask questions and assume patient care.
--- NOTE | 2019-01-07 06:36 | NUR ---
Problems reprioritized. Patient report given, questions answered & plan of care reviewed with Trudy CHACKO.
[2019-01-07] MEDS: pantoprazole 40mg Tablet.DR PO SCH (07:41)
[2019-01-07] MEDS: enoxaparin 40mg/0.4ml syringe SUBCUT SCH (07:43)
[2019-01-07] MEDS: cefepime 2g/NS 100ml ADVANTAGE 100 ML IV SCH ×2 (07:43→20:46)
[2019-01-07] MEDS ORDERED: bisacodyl 10mg suppository rectal RC PRN (09:20)
[2019-01-07] MEDS ORDERED: ASPI-1071 PO (14:14)
[2019-01-07] MEDS ORDERED: normal saline 1000ml 1,000 ML IV ONE (14:40)
[2019-01-07] MEDS: NORepinephrine 8mg/ 250ml NS 250 ML IV PRN (17:21)
--- NOTE | 2019-01-07 18:26 | NUR ---
Problems reprioritized. Patient report given, questions answered & plan of care reviewed with GINNA Cazares.
--- NOTE | 2019-01-07 18:28 | NUR ---
Patient in room CICU 2012. I have received report from Trudy CHACKO and had the opportunity to ask questions and assume patient care. Patient resting in bed, alert/oriented x2. BP currently at 89/58 on 7mcg levophed. HR in mid 60s in sinus rhythm. Will continue to monitor patient.
[2019-01-07] MEDS: docusate sod 100mg capsule PO SCH (20:45)
[2019-01-07] MEDS: atorvastatin 10mg tablet PO SCH (20:45)
[2019-01-07] MEDS: lactobacillus rhamnosus 10,000 MMU CELLS/CAPSULE PO SCH (20:45)
--- NOTE | 2019-01-07 21:59 | NUR ---
Dressing line changed. Patient wincing and becoming very angry and combative when area touched, stating it is very painful. Area is bruised, no swelling noted. Two other staff members needed at bedside to ensure RN safety during line change as patient kept trying to hit RN when touching CVL insertion site. Will continue to monitor patient agitation and CVL site.
[2019-01-08] VITALS (24 sets, daily range): BP systolic 76–117; BP diastolic 45–78
--- NOTE | 2019-01-08 | NUR ---
Patient currently resting comfortably in bed. Patient continues to be confused when awake, attempts to get out of bed approximately every hour with urge to void. Able to void in urinal, goes back to sleep after using it. Levophed still infusing at 7mcg/hr with MAP >65. Will continue to monitor patient.
[2019-01-08 05:37] LABS: BASOPHILS # (AUTO) 0.1 X10'3 (0-0.2); BASOPHILS % (AUTO) 0.8 % (0-1); EOSINOPHILS % (AUTO) 6.5 % (0-6); HEMATOCRIT 28.2 % (42.0-52.0); LYMPHOCYTES # (AUTO) 1.1 X10'3 (1.1-4.8); LYMPHOCYTES % (AUTO) 7.2 % (21-51); MEAN CORPUSCULAR HEMOGLOBIN 27.9 PG (27.0-31.0); MEAN CORPUSCULAR HGB CONC 31.7 g/dL (33.0-36.5); MEAN PLATELET VOLUME 9.4 FL (7.4-10.4); MONOCYTES # (AUTO) 0.9 X10'3 (0-0.9); MONOCYTES % (AUTO) 5.5 % (2-12); NEUTROPHILS # (AUTO) 12.6 X10'3 (1.8-7.7); PLATELET COUNT 305 X10'3 (140-440); RED BLOOD COUNT 3.21 X10'6 (4.70-6.10); RED CELL DISTRIBUTION WIDTH 16.2 % (11.5-14.5); WHITE BLOOD COUNT 15.8 X10'3 (4.5-11.0)
[2019-01-08 05:52] LABS: ALANINE AMINOTRANSFERASE 66 U/L (12-78); ALBUMIN 2.2 G/DL (3.4-5.0); ALBUMIN/GLOBULIN RATIO 0.7 (1.1-1.5); ALKALINE PHOSPHATASE 118 IU/L (46-116); ANION GAP 9 (8-16); ASPARTATE AMINO TRANSFERASE 47 U/L (10-37); BLOOD UREA NITROGEN 10 MG/DL (7-18); BUN/CREATININE RATIO 13.2 (5.4-32.0); CALCIUM 7.6 MG/DL (8.5-10.1); CHLORIDE 104 MMOL/L (99-107); CREATININE 0.76 MG/DL (0.60-1.10); GLUCOSE 96 MG/DL (70-104); MAGNESIUM 1.5 MG/DL (1.5-2.4); PHOSPHORUS 1.8 MG/DL (2.3-4.5); POTASSIUM 3.7 MMOL/L (3.5-5.1); SODIUM 135 MMOL/L (135-145); TOTAL CARBON DIOXIDE 21.6 MMOL/L (24-32); TOTAL PROTEIN 5.5 G/DL (6.4-8.2); eGFR > 90 ML/MIN
[2019-01-08] MEDS: normal saline 1000ml 1,000 ML IV SCH ×3 (06:31→21:30)
--- NOTE | 2019-01-08 06:34 | NUR ---
Problems reprioritized. Patient report given, questions answered & plan of care reviewed with Gaudencio CHACKO.
[2019-01-08] MEDS: K, MAG and/or Phos replacement - Verify level? MC SCH (08:00)
[2019-01-08] MEDS ORDERED: pantoprazole 40mg Tablet.DR PO SCH (08:00)
[2019-01-08] MEDS: tamsulosin 0.4mg capsule PO SCH (08:29)
[2019-01-08] MEDS: aspirin 81mg tab.chew PO SCH (08:29)
[2019-01-08] MEDS: pantoprazole 40mg Tablet.DR PO SCH (08:29)
[2019-01-08] MEDS: docusate sod 100mg capsule PO SCH ×2 (08:29→20:00)
[2019-01-08] MEDS: levoTHYROXINE 112mcg tablet PO SCH (08:29)
[2019-01-08] MEDS: lactobacillus rhamnosus 10,000 MMU CELLS/CAPSULE PO SCH ×2 (08:29→20:18)
[2019-01-08] MEDS: enoxaparin 40mg/0.4ml syringe SUBCUT SCH (08:30)
[2019-01-08] MEDS: cefepime 2g/NS 100ml ADVANTAGE 100 ML IV SCH ×2 (08:30→20:18)
[2019-01-08] MEDS ORDERED: TESTOSTERONE CYPIONATE 200 MG/ML VIAL IM SCH (09:00)
[2019-01-08] MEDS ORDERED: normal saline 1000ml 1,000 ML IV ONE (09:35)
--- NOTE | 2019-01-08 10:26 | NUR ---
Spoke with lab; they said they can run the vanco trough from the Ionized calcium im sending
[2019-01-08] MEDS: vancomycin inj 1,250 MG in NS 250ml IV soln IV SCH ×2 (10:59→17:37)
[2019-01-08] MEDS ORDERED: calcium chloride 100 MG/1 ML inj IV ONE (11:10)
[2019-01-08] MEDS ORDERED: calcium chloride inj. 1,000 MG in normal saline 100ml IV soln 90 ML IV ONE (11:45)
[2019-01-08] MEDS: albumin (human) 25% 100 ML IV solution IV SCH ×2 (14:09→20:28)
[2019-01-08] MEDS: NORepinephrine 8mg/ 250ml NS 250 ML IV PRN (14:10)
[2019-01-08] MEDS: atorvastatin 10mg tablet PO SCH (20:25)
--- NOTE | 2019-01-08 22:45 | NUR ---
pt was offered dinner but refused
[2019-01-09] VITALS (25 sets, daily range): BP systolic 84–135; BP diastolic 39–75
[2019-01-09] MEDS: vancomycin inj 1,250 MG in NS 250ml IV soln IV SCH ×2 (00:45→09:00)
[2019-01-09] MEDS ORDERED: VANCOMYCIN LEVEL IV ONE ×2 (01:30→08:30)
[2019-01-09 02:16] LABS: BASOPHILS # (AUTO) 0.1 X10'3 (0-0.2); BASOPHILS % (AUTO) 0.8 % (0-1); EOSINOPHILS # (AUTO) 0.7 X10'3 (0-0.9); EOSINOPHILS % (AUTO) 6.3 % (0-6); HEMATOCRIT 25.3 % (42.0-52.0); HEMOGLOBIN 8.5 g/dl (14.0-17.9); LYMPHOCYTES # (AUTO) 0.9 X10'3 (1.1-4.8); LYMPHOCYTES % (AUTO) 8.4 % (21-51); MEAN CORPUSCULAR HEMOGLOBIN 29.4 PG (27.0-31.0); MEAN CORPUSCULAR HGB CONC 33.5 g/dL (33.0-36.5); MEAN CORPUSCULAR VOLUME 87.9 FL (78-98); MEAN PLATELET VOLUME 8.3 FL (7.4-10.4); MONOCYTES # (AUTO) 0.5 X10'3 (0-0.9); MONOCYTES % (AUTO) 4.7 % (2-12); NEUTROPHILS # (AUTO) 8.7 X10'3 (1.8-7.7); NEUTROPHILS % (AUTO) 79.8 % (42-75); PLATELET COUNT 253 X10'3 (140-440); RED BLOOD COUNT 2.88 X10'6 (4.70-6.10); RED CELL DISTRIBUTION WIDTH 16.3 % (11.5-14.5)
[2019-01-09 02:30] LABS: ALANINE AMINOTRANSFERASE 48 U/L (12-78); ALBUMIN/GLOBULIN RATIO 1.1 (1.1-1.5); ALKALINE PHOSPHATASE 94 IU/L (46-116); ANION GAP 11 (8-16); ASPARTATE AMINO TRANSFERASE 36 U/L (10-37); BILIRUBIN,TOTAL 1.2 MG/DL (0.1-1.0); BLOOD UREA NITROGEN 5 MG/DL (7-18); BUN/CREATININE RATIO 6.8 (5.4-32.0); CALCIUM 8.2 MG/DL (8.5-10.1); CHLORIDE 103 MMOL/L (99-107); CREATININE 0.73 MG/DL (0.60-1.10); GLUCOSE 90 MG/DL (70-104); MAGNESIUM 1.4 MG/DL (1.5-2.4); PHOSPHORUS 1.9 MG/DL (2.3-4.5); SODIUM 136 MMOL/L (135-145); TOTAL PROTEIN 5.8 G/DL (6.4-8.2); eGFR > 90 ML/MIN
[2019-01-09 02:35] LABS: POTASSIUM 3.4 MMOL/L (3.5-5.1)
[2019-01-09] MEDS: normal saline 1000ml 1,000 ML IV SCH ×3 (07:32→22:41)
[2019-01-09] MEDS: K, MAG and/or Phos replacement - Verify level? MC SCH (08:00)
[2019-01-09] MEDS: albumin (human) 25% 100 ML IV solution IV SCH (08:20)
[2019-01-09] MEDS: enoxaparin 40mg/0.4ml syringe SUBCUT SCH (08:24)
[2019-01-09] MEDS: docusate sod 100mg capsule PO SCH ×2 (08:24→19:33)
[2019-01-09] MEDS: lactobacillus rhamnosus 10,000 MMU CELLS/CAPSULE PO SCH ×2 (08:24→20:29)
[2019-01-09] MEDS: levoTHYROXINE 112mcg tablet PO SCH (08:25)
[2019-01-09] MEDS: pantoprazole 40mg Tablet.DR PO SCH (08:25)
[2019-01-09] MEDS: tamsulosin 0.4mg capsule PO SCH (08:25)
[2019-01-09] MEDS: aspirin 81mg tab.chew PO SCH (08:25)
[2019-01-09] MEDS: cefepime 2g/NS 100ml ADVANTAGE 100 ML IV SCH (08:57)
[2019-01-09] MEDS ORDERED: magnesium 4gm in 100ml NS 100 ML IV ONE (09:00)
[2019-01-09] MEDS ORDERED: sodium phosphate inj. 30 MMOL in dextrose 5%-water 250 ML IV ONE (09:00)
--- NOTE | 2019-01-09 09:05 | NUR ---
Critical Vanco trough reported to Dr Spann and DR Irizarry. Orders to hold dose and DC all antibiotics. Order from Dr Irizarry to DC femoral line and place picc
--- NOTE | 2019-01-09 09:11 | NUR ---
PICC nurse paged. She said she will come after her machine is fixed
[2019-01-09] MEDS: potassium Cl 40MEQ/250ML bag 250 ML IV PRN (09:53)
[2019-01-09] MEDS: midodrine tablet 2.5 MG TABLET PO SCH ×3 (10:12→23:36)
--- NOTE | 2019-01-09 18:06 | NUR ---
Femoral line removed per MD order, following policy and procedures. Patient tolerated well
[2019-01-09] MEDS: atorvastatin 10mg tablet PO SCH (20:29)
[2019-01-10] VITALS (24 sets, daily range): BP systolic 94–158; BP diastolic 40–108
[2019-01-10 02:55] LABS: BASOPHILS % (AUTO) 0.4 % (0-1); EOSINOPHILS # (AUTO) 0.5 X10'3 (0-0.9); EOSINOPHILS % (AUTO) 6.5 % (0-6); HEMATOCRIT 23.7 % (42.0-52.0); HEMOGLOBIN 7.6 g/dl (14.0-17.9); LYMPHOCYTES # (AUTO) 0.8 X10'3 (1.1-4.8); LYMPHOCYTES % (AUTO) 10.9 % (21-51); MEAN CORPUSCULAR HEMOGLOBIN 28.2 PG (27.0-31.0); MEAN CORPUSCULAR HGB CONC 31.8 g/dL (33.0-36.5); MEAN CORPUSCULAR VOLUME 88.5 FL (78-98); MEAN PLATELET VOLUME 8.2 FL (7.4-10.4); MONOCYTES # (AUTO) 0.4 X10'3 (0-0.9); MONOCYTES % (AUTO) 5.2 % (2-12); PLATELET COUNT 214 X10'3 (140-440); RED BLOOD COUNT 2.68 X10'6 (4.70-6.10); RED CELL DISTRIBUTION WIDTH 16.4 % (11.5-14.5); WHITE BLOOD COUNT 7.8 X10'3 (4.5-11.0)
[2019-01-10 03:08] LABS: ALANINE AMINOTRANSFERASE 37 U/L (12-78); ALBUMIN 2.5 G/DL (3.4-5.0); ALKALINE PHOSPHATASE 78 IU/L (46-116); ANION GAP 8 (8-16); ASPARTATE AMINO TRANSFERASE 27 U/L (10-37); BILIRUBIN,TOTAL 0.8 MG/DL (0.1-1.0); BLOOD UREA NITROGEN 5 MG/DL (7-18); BUN/CREATININE RATIO 8.5 (5.4-32.0); CALCIUM 7.5 MG/DL (8.5-10.1); CHLORIDE 107 MMOL/L (99-107); CREATININE 0.59 MG/DL (0.60-1.10); GLUCOSE 84 MG/DL (70-104); SODIUM 137 MMOL/L (135-145); TOTAL CARBON DIOXIDE 21.8 MMOL/L (24-32); TOTAL PROTEIN 4.9 G/DL (6.4-8.2); eGFR > 90 ML/MIN
[2019-01-10] MEDS: normal saline 1000ml 1,000 ML IV SCH ×3 (06:41→22:50)
[2019-01-10] MEDS: docusate sod 100mg capsule PO SCH ×2 (08:00→20:00)
[2019-01-10] MEDS: K, MAG and/or Phos replacement - Verify level? MC SCH (08:00)
[2019-01-10] MEDS: aspirin 81mg tab.chew PO SCH (08:01)
[2019-01-10] MEDS: midodrine tablet 2.5 MG TABLET PO SCH ×3 (08:01→23:58)
[2019-01-10] MEDS: levoTHYROXINE 112mcg tablet PO SCH (08:01)
[2019-01-10] MEDS: pantoprazole 40mg Tablet.DR PO SCH (08:01)
[2019-01-10] MEDS: tamsulosin 0.4mg capsule PO SCH (08:01)
[2019-01-10] MEDS: lactobacillus rhamnosus 10,000 MMU CELLS/CAPSULE PO SCH ×2 (08:01→20:04)
[2019-01-10] MEDS: enoxaparin 40mg/0.4ml syringe SUBCUT SCH (08:02)
[2019-01-10] MEDS: potassium Cl 40MEQ/250ML bag 250 ML IV PRN (08:38)
--- NOTE | 2019-01-10 11:30 | NUR ---
Patients mentation is much improved from yesterday. He is more alert and able to hold a conversation that makes sense.
[2019-01-10] MEDS: atorvastatin 10mg tablet PO SCH (20:04)
[2019-01-11] VITALS (24 sets, daily range): BP systolic 96–185; BP diastolic 49–92
[2019-01-11 02:23] LABS: BASOPHILS % (AUTO) 0.6 % (0-1); EOSINOPHILS # (AUTO) 0.5 X10'3 (0-0.9); EOSINOPHILS % (AUTO) 6.9 % (0-6); HEMATOCRIT 22.5 % (42.0-52.0); HEMOGLOBIN 7.3 g/dl (14.0-17.9); LYMPHOCYTES # (AUTO) 0.8 X10'3 (1.1-4.8); LYMPHOCYTES % (AUTO) 10.4 % (21-51); MEAN CORPUSCULAR HEMOGLOBIN 28.2 PG (27.0-31.0); MEAN CORPUSCULAR HGB CONC 32.3 g/dL (33.0-36.5); MEAN CORPUSCULAR VOLUME 87.1 FL (78-98); MEAN PLATELET VOLUME 8.4 FL (7.4-10.4); MONOCYTES # (AUTO) 0.5 X10'3 (0-0.9); MONOCYTES % (AUTO) 6.2 % (2-12); NEUTROPHILS # (AUTO) 5.9 X10'3 (1.8-7.7); NEUTROPHILS % (AUTO) 75.9 % (42-75); PLATELET COUNT 220 X10'3 (140-440); RED BLOOD COUNT 2.59 X10'6 (4.70-6.10); RED CELL DISTRIBUTION WIDTH 16.4 % (11.5-14.5); WHITE BLOOD COUNT 7.7 X10'3 (4.5-11.0)
[2019-01-11 02:43] LABS: ALANINE AMINOTRANSFERASE 40 U/L (12-78); ALBUMIN 2.5 G/DL (3.4-5.0); ALBUMIN/GLOBULIN RATIO 0.9 (1.1-1.5); ALKALINE PHOSPHATASE 87 IU/L (46-116); ANION GAP 6 (8-16); ASPARTATE AMINO TRANSFERASE 28 U/L (10-37); BILIRUBIN,TOTAL 0.5 MG/DL (0.1-1.0); BLOOD UREA NITROGEN 7 MG/DL (7-18); BUN/CREATININE RATIO 10.4 (5.4-32.0); CALCIUM 7.6 MG/DL (8.5-10.1); CHLORIDE 109 MMOL/L (99-107); CREATININE 0.67 MG/DL (0.60-1.10); GLUCOSE 105 MG/DL (70-104); POTASSIUM 3.6 MMOL/L (3.5-5.1); SODIUM 139 MMOL/L (135-145); TOTAL CARBON DIOXIDE 24.5 MMOL/L (24-32); TOTAL PROTEIN 5.2 G/DL (6.4-8.2); eGFR > 90 ML/MIN
[2019-01-11] MEDS: normal saline 1000ml 1,000 ML IV SCH (06:41)
--- NOTE | 2019-01-11 07:15 | NUR ---
Trying to get out of bed While rounding on patient found patient almost out of the bed trying to leave the bed. Patient stated he wanted to go home now and was very upset. Talked to patient about condition and he calmed down.
[2019-01-11] MEDS: lactobacillus rhamnosus 10,000 MMU CELLS/CAPSULE PO SCH ×2 (07:51→19:34)
[2019-01-11] MEDS: tamsulosin 0.4mg capsule PO SCH (07:51)
[2019-01-11] MEDS: docusate sod 100mg capsule PO SCH ×2 (07:51→19:34)
[2019-01-11] MEDS: levoTHYROXINE 112mcg tablet PO SCH (07:51)
[2019-01-11] MEDS: aspirin 81mg tab.chew PO SCH (07:51)
[2019-01-11] MEDS: pantoprazole 40mg Tablet.DR PO SCH (07:51)
[2019-01-11] MEDS: midodrine tablet 2.5 MG TABLET PO SCH ×2 (07:59→15:07)
[2019-01-11] MEDS: enoxaparin 40mg/0.4ml syringe SUBCUT SCH (07:59)
[2019-01-11] MEDS: K, MAG and/or Phos replacement - Verify level? MC SCH (08:00)
--- NOTE | 2019-01-11 08:00 | NUR ---
Swallowing Issues Patient chocked on medication pass this morning vomited up meds unkown what meds were digested or came back up in the vomit. Dr. Connor notified ordered chest X-ray and npo until swallow study.
[2019-01-11] MEDS: piperacillin/tazo 3.375gm/50ml 50 ML IV SCH ×2 (10:48→15:17)
--- NOTE | 2019-01-11 18:25 | NUR ---
Patient in room CICU 2013. I have received report and had the opportunity to ask questions and assume patient care.
--- NOTE | 2019-01-11 19:30 | NUR ---
pt very noncompliant with sternal precautions do to recent CABG. sitter in room to provide reminders to pt. pt is A&O x 1.
[2019-01-11] MEDS: atorvastatin 10mg tablet PO SCH (20:39)
[2019-01-12] VITALS (29 sets, daily range): BP systolic 118–196; BP diastolic 48–94
[2019-01-12] MEDS: piperacillin/tazo 3.375gm/50ml 50 ML IV SCH ×4 (00:49→23:29)
[2019-01-12 02:47] LABS: BASOPHILS % (AUTO) 0.4 % (0-1); EOSINOPHILS # (AUTO) 0.4 X10'3 (0-0.9); EOSINOPHILS % (AUTO) 3.6 % (0-6); HEMATOCRIT 27.5 % (42.0-52.0); HEMOGLOBIN 8.9 g/dl (14.0-17.9); LYMPHOCYTES # (AUTO) 0.9 X10'3 (1.1-4.8); LYMPHOCYTES % (AUTO) 7.9 % (21-51); MEAN CORPUSCULAR HEMOGLOBIN 27.7 PG (27.0-31.0); MEAN CORPUSCULAR HGB CONC 32.2 g/dL (33.0-36.5); MEAN CORPUSCULAR VOLUME 86.2 FL (78-98); MEAN PLATELET VOLUME 8.4 FL (7.4-10.4); MONOCYTES # (AUTO) 0.5 X10'3 (0-0.9); MONOCYTES % (AUTO) 4.2 % (2-12); NEUTROPHILS # (AUTO) 9.3 X10'3 (1.8-7.7); NEUTROPHILS % (AUTO) 83.9 % (42-75); PLATELET COUNT 245 X10'3 (140-440); RED BLOOD COUNT 3.19 X10'6 (4.70-6.10); RED CELL DISTRIBUTION WIDTH 16.4 % (11.5-14.5); WHITE BLOOD COUNT 11.1 X10'3 (4.5-11.0)
[2019-01-12 02:54] LABS: ALANINE AMINOTRANSFERASE 39 U/L (12-78); ALBUMIN 2.8 G/DL (3.4-5.0); ALBUMIN/GLOBULIN RATIO 0.9 (1.1-1.5); ALKALINE PHOSPHATASE 99 IU/L (46-116); ANION GAP 8 (8-16); ASPARTATE AMINO TRANSFERASE 28 U/L (10-37); BLOOD UREA NITROGEN 4 MG/DL (7-18); BUN/CREATININE RATIO 6.2 (5.4-32.0); CALCIUM 8.4 MG/DL (8.5-10.1); CHLORIDE 103 MMOL/L (99-107); CREATININE 0.65 MG/DL (0.60-1.10); GLUCOSE 101 MG/DL (70-104); MAGNESIUM 1.8 MG/DL (1.5-2.4); POTASSIUM 3.7 MMOL/L (3.5-5.1); SODIUM 137 MMOL/L (135-145); TOTAL CARBON DIOXIDE 25.9 MMOL/L (24-32); eGFR > 90 ML/MIN
[2019-01-12] MEDS: enoxaparin 40mg/0.4ml syringe SUBCUT SCH (07:01)
[2019-01-12] MEDS: K, MAG and/or Phos replacement - Verify level? MC SCH (07:33)
[2019-01-12] MEDS: midodrine tablet 2.5 MG TABLET PO SCH ×2 (07:34)
[2019-01-12] MEDS: docusate sod 100mg capsule PO SCH ×2 (08:00→20:25)
[2019-01-12] MEDS: levoTHYROXINE 112mcg tablet PO SCH (08:07)
[2019-01-12] MEDS: aspirin 81mg tab.chew PO SCH (08:07)
[2019-01-12] MEDS: pantoprazole 40mg Tablet.DR PO SCH (08:07)
[2019-01-12] MEDS: tamsulosin 0.4mg capsule PO SCH (08:07)
[2019-01-12] MEDS: lactobacillus rhamnosus 10,000 MMU CELLS/CAPSULE PO SCH ×2 (08:10→20:25)
--- NOTE | 2019-01-12 09:52 | NUR ---
nectar thick Patient did well with nectar thick apple juice no coughing
--- NOTE | 2019-01-12 11:30 | NUR ---
CT With patient to CT for CT chest. Patient handled procedure well no complications.
[2019-01-12] MEDS ORDERED: LIDOcaine 1%/PF 5ML 10 MG/ML VIAL ONE (13:00)
[2019-01-12 15:36] LABS: PLEURAL FLUID PH 7.448 (7.63-7.65)
[2019-01-12 15:37] LABS: BFSOURCE RIGHT PLEURAL FLD
--- NOTE | 2019-01-12 15:55 | NUR ---
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 Has large pleural effusion per MD note, now pending thoracentesis. Patient was seen by COUNTER TENDER this morning for bedside swallow, COUNTER TENDER reports patients has some gulping and throat clearing with thin liquids and recommend pureed foods and nectar thick liquids. Documented as confused at times, has sitter. Patient has poor PO Intake since admission, 0-25%, texture modification will likely improve PO intake. Recommend sending Ensure Pudding with breakfast and dinner in view of poor intake for five days. Will monitor PO intake and need for any additional supplement. Recommend: 1. Continue pureed food and nectar thick liquid per COUNTER TENDER recs 2. Send Ensure pudding with breakfast and dinner 3. Weight per rx Addendum: 01/12/19 at [address] Amended: Links added.
[2019-01-12 16:03] LABS: GLUCOSE,BODY FLUID 84 MG/DL; LDH,BODY FLUID 804 U/L; TOTAL PROTEIN,BODY FLUID 3.5 G/DL
[2019-01-12 17:42] LABS: BFAPPEAR BLOODY; BFCOLOR RED; BFVOLUME 60 ML
[2019-01-12 17:43] LABS: BF RBC COUNT 57762 /CU MM; BF WBC COUNT 2277 /CU MM (0-1000); EOSINOPHILS,BODY FLUID 5 %; LYMPHOCYTES,BODY FLUID 82 %; MONOCYTES,BODY FLUID 2 %; NEUTROPHILS,BODY FLUID 11 %
--- NOTE | 2019-01-12 18:47 | NUR ---
Patient in room CICU 2013. I have received report from Hernandez CHACKO and had the opportunity to ask questions and assume patient care.
[2019-01-12] MEDS: atorvastatin 10mg tablet PO SCH (20:25)
[2019-01-12] MEDS: metoprolol tartrate 12.5mg (1/2 tablet) PO SCH (20:25)
[2019-01-13] VITALS (19 sets, daily range): BP systolic 91–151; BP diastolic 45–72
[2019-01-13 02:37] LABS: BASOPHILS % (AUTO) 0.3 % (0-1); EOSINOPHILS # (AUTO) 0.5 X10'3 (0-0.9); EOSINOPHILS % (AUTO) 6.3 % (0-6); HEMATOCRIT 28.7 % (42.0-52.0); HEMOGLOBIN 9.3 g/dl (14.0-17.9); LYMPHOCYTES # (AUTO) 1.1 X10'3 (1.1-4.8); LYMPHOCYTES % (AUTO) 13.5 % (21-51); MEAN CORPUSCULAR HGB CONC 32.4 g/dL (33.0-36.5); MEAN CORPUSCULAR VOLUME 86.6 FL (78-98); MEAN PLATELET VOLUME 8.2 FL (7.4-10.4); MONOCYTES # (AUTO) 0.4 X10'3 (0-0.9); MONOCYTES % (AUTO) 5.4 % (2-12); NEUTROPHILS # (AUTO) 6.1 X10'3 (1.8-7.7); NEUTROPHILS % (AUTO) 74.5 % (42-75); PLATELET COUNT 239 X10'3 (140-440); RED BLOOD COUNT 3.31 X10'6 (4.70-6.10); RED CELL DISTRIBUTION WIDTH 16.6 % (11.5-14.5); WHITE BLOOD COUNT 8.2 X10'3 (4.5-11.0)
[2019-01-13 02:49] LABS: ALANINE AMINOTRANSFERASE 39 U/L (12-78); ALBUMIN 2.5 G/DL (3.4-5.0); ALBUMIN/GLOBULIN RATIO 0.8 (1.1-1.5); ALKALINE PHOSPHATASE 94 IU/L (46-116); ANION GAP 5 (8-16); ASPARTATE AMINO TRANSFERASE 28 U/L (10-37); BILIRUBIN,TOTAL 0.9 MG/DL (0.1-1.0); BLOOD UREA NITROGEN 6 MG/DL (7-18); BUN/CREATININE RATIO 7.4 (5.4-32.0); CALCIUM 8.1 MG/DL (8.5-10.1); CHLORIDE 102 MMOL/L (99-107); CREATININE 0.81 MG/DL (0.60-1.10); GLUCOSE 93 MG/DL (70-104); POTASSIUM 3.6 MMOL/L (3.5-5.1); SODIUM 136 MMOL/L (135-145); TOTAL CARBON DIOXIDE 29.1 MMOL/L (24-32); TOTAL PROTEIN 5.8 G/DL (6.4-8.2); eGFR > 90 ML/MIN
--- NOTE | 2019-01-13 06:26 | NUR ---
Problems reprioritized. Patient report given,Tish CHACKO questions answered & plan of care reviewed with .
--- NOTE | 2019-01-13 06:30 | NUR ---
Patient in room CICU 2013. I have received report from GINNA Munguia and had the opportunity to ask questions and assume patient care.
[2019-01-13] MEDS: K, MAG and/or Phos replacement - Verify level? MC SCH (08:00)
[2019-01-13] MEDS: tamsulosin 0.4mg capsule PO SCH (08:41)
[2019-01-13] MEDS: aspirin 81mg tab.chew PO SCH (08:42)
[2019-01-13] MEDS: docusate sod 100mg capsule PO SCH (08:42)
[2019-01-13] MEDS: metoprolol tartrate 12.5mg (1/2 tablet) PO SCH (08:42)
[2019-01-13] MEDS: enoxaparin 40mg/0.4ml syringe SUBCUT SCH (08:42)
[2019-01-13] MEDS: levoTHYROXINE 112mcg tablet PO SCH (08:42)
[2019-01-13] MEDS: lactobacillus rhamnosus 10,000 MMU CELLS/CAPSULE PO SCH (08:42)
[2019-01-13] MEDS: pantoprazole 40mg Tablet.DR PO SCH (08:44)
[2019-01-13] MEDS: piperacillin/tazo 3.375gm/50ml 50 ML IV SCH ×2 (08:44→16:22)
--- NOTE | 2019-01-13 10:59 | NUR ---
pt is awake and alert, disoriented to time, confused at times. RN oriented pt to situation. advanced diet to mechanical soft, thin liquid per speech. ambulated with PT without resp distress. Dr. Spann arrived on unit and assessed pt, updated on pt condition. okay to transfer pt back to [facility]. will update family on plan of care.
[2019-01-13] MEDS ORDERED: ENOX40DI11 SUBCUT (15:04)
--- NOTE | 2019-01-13 15:51 | NUR ---
Discharge summary and report given to Octavia CHACKO from [facility]. questions answered, updated family on plan of care.
--- NOTE | 2019-01-13 18:26 | NUR ---
Pt discharge to [facility] via [facility]. pt accompanied by local city driver, belonging sent with patient.
== END 2019-01-13 18:27 | DRG 871 ==
LOC: ER 19:27 → CICU 2S 01-07 01:23 → CMPBEDREQ 01-07 01:24
PROVIDERS: ADMIT Internal Medicine Critical Care Medicine; ATTEND Internal Medicine Critical Care Medicine
PROC: 06HN33Z Insertion of Infusion Device into Left Femoral Vein, Percutaneous Approach (ICD-10-PCS; 2019-01-06)
PROC: 0W993ZX Drainage of Right Pleural Cavity, Percutaneous Approach, Diagnostic (ICD-10-PCS; principal; 2019-01-12)
DX: A41.9 Sepsis, unspecified organism (principal); R65.21 Severe sepsis with septic shock; J18.9 Pneumonia, unspecified organism; J44.0 Chronic obstructive pulmonary disease with (acute) lower respiratory infection; J90 Pleural effusion, not elsewhere classified; E03.9 Hypothyroidism, unspecified; E78.5 Hyperlipidemia, unspecified; F03.90 Unspecified dementia, unspecified severity, without behavioral disturbance, psychotic disturbance, mood disturbance, and anxiety; I10 Essential (primary) hypertension; I25.10 Atherosclerotic heart disease of native coronary artery without angina pectoris; M19.90 Unspecified osteoarthritis, unspecified site; N40.0 Benign prostatic hyperplasia without lower urinary tract symptoms; Z95.1 Presence of aortocoronary bypass graft; Z79.82 Long term (current) use of aspirin; Z79.899 Other long term (current) drug therapy; Z86.73 Personal history of transient ischemic attack (TIA), and cerebral infarction without residual deficits; Z87.891 Personal history of nicotine dependence
CPT/HCPCS: 32555; 36415; 36556; 36569; 70450; 71045; 71250; 74176; 76937; 80053; 80202; 81001; 82330; 82810; 82945; 83605; 83615; 83735; 83986; 84100; 84132; 84145; 84157; 84484; 85025; 85610; 85730; 87040; 87070; 89051; 92508; 92616; 93005; 93306; 94760; 96365; 97110; 97116; 97161; 97530; 97535; 99291; G0378; J0692; J0696; J1650; J1956; J2001; J2270; J2543; J3370; J3475; J3480; J7030; J7060; P9047; X5620

== ENCOUNTER 2021-02-05 20:24 | Emergency (ER) | payer MEDICARE, OTHER, SELFPAY ==
[~2021-02-05] VITALS: Ht 172.7 cm; Wt 185.0 kg
[~2021-02-05 20:24] MED LIST changes: +ACET-2119 PO; +ASPI-1071 PO; -ASPI-1264 PO; +BISA10SU60 RC; +DOCU-348 PO; +ENOX40DI11 SUBCUT; +LOP25T PO; +PANT-47 PO
[2021-02-05 23:01] LABS: BASOPHILS % (AUTO) 0.5 % (0-1); EOSINOPHILS # (AUTO) 0.1 X10'3 (0-0.9); EOSINOPHILS % (AUTO) 1.2 % (0-6); HEMATOCRIT 38.5 % (42.0-52.0); HEMOGLOBIN 12.7 g/dl (14.0-17.9); LYMPHOCYTES # (AUTO) 1.2 X10'3 (1.1-4.8); LYMPHOCYTES % (AUTO) 15.3 % (21-51); MEAN CORPUSCULAR HEMOGLOBIN 32.1 PG (27.0-31.0); MEAN CORPUSCULAR VOLUME 97.3 FL (78-98); MEAN PLATELET VOLUME 9.1 FL (7.4-10.4); MONOCYTES # (AUTO) 0.6 X10'3 (0-0.9); NEUTROPHILS # (AUTO) 6.1 X10'3 (1.8-7.7); PLATELET COUNT 168 X10'3 (140-440); RED BLOOD COUNT 3.96 X10'6 (4.70-6.10); RED CELL DISTRIBUTION WIDTH 18.7 % (11.5-14.5)
[2021-02-05 23:13] LABS: PARTIAL THROMBOPLASTIN TIME 25 SECONDS (22-32)
[2021-02-05 23:17] LABS: CLARITY,URINE CLEAR (Clear); COLOR,URINE YELLOW (Yellow); GLUCOSE, URINE NEGATIVE (Neg); KETONES,URINE NEGATIVE (Neg); LEUKOCYTE ESTERASE ,URINE NEGATIVE (Neg); NITRITES, URINE NEGATIVE (Neg); OCCULT BLOOD,URINE NEGATIVE (Neg); PH,URINE 5.5 (4.8-8.0); PROTEIN,URINE NEGATIVE (Neg); UA COLLECTION TYPE VOIDED; UROBILINOGEN,URINE 0.2 E.U/dL (0.2-1.0)
[2021-02-05 23:25] LABS: ALANINE AMINOTRANSFERASE 47 U/L (12-78); ALBUMIN 3.2 G/DL (3.4-5.0); ALBUMIN/GLOBULIN RATIO 0.9 (1.1-1.5); ALKALINE PHOSPHATASE 110 IU/L (46-116); ANION GAP 8 (8-16); ASPARTATE AMINO TRANSFERASE 32 U/L (10-37); BILIRUBIN,TOTAL 0.6 MG/DL (0.1-1.0); BLOOD UREA NITROGEN 13 MG/DL (7-18); BUN/CREATININE RATIO 10.7 (5.4-32.0); CALCIUM 8.6 MG/DL (8.5-10.1); CHLORIDE 104 MMOL/L (99-107); CREATININE 1.21 MG/DL (0.60-1.10); GLUCOSE 128 MG/DL (70-104); MAGNESIUM 2.2 MG/DL (1.5-2.4); POTASSIUM 4.2 MMOL/L (3.5-5.1); SODIUM 139 MMOL/L (135-145); TOTAL CARBON DIOXIDE 27.5 MMOL/L (24-32); TOTAL PROTEIN 6.9 G/DL (6.4-8.2); eGFR 58 ML/MIN
[2021-02-06 00:28] VITALS: BP 148/62
[2021-02-06 00:57] LABS: ANISOCYTOSIS 2+; ELLIPTOCYTES 1+; PLATELET ESTIMATE NORMAL
== END 2021-02-06 00:31 | disposition home or self-care (01) ==
LOC: ER 20:25
DX: R53.1 Weakness (principal); I25.10 Atherosclerotic heart disease of native coronary artery without angina pectoris; I25.2 Old myocardial infarction; Z95.5 Presence of coronary angioplasty implant and graft; Z86.73 Personal history of transient ischemic attack (TIA), and cerebral infarction without residual deficits; Z79.82 Long term (current) use of aspirin; Z79.899 Other long term (current) drug therapy
CPT/HCPCS: 71045; 80053; 81003; 83735; 83880; 84484; 85008; 85025; 85610; 85730; 93005; 99285